=== PATIENT | female | born 1950 | race Caucasian/White ===

== ENCOUNTER 2017-01-24 10:37 | Inpatient (IN) | payer MEDICARE, OTHER ==
[2017-01-24] MEDS ORDERED: TYLENOL PO ONE (11:28)
--- NOTE | 2017-01-24 12:19 | Cat Scan Report ---
CT scan of head without IV contrast: History: Fall. Findings: Ventricles are normal in size and midline in location. No evidence of acute ischemia, hemorrhage or mass. No extra axial fluid collection. Normal brainstem and cerebellum. Normal mastoid air cells. Small polyp left maxillary sinus. Mucosal edema ethmoid sinuses. Impression: No acute intracranial abnormality. Sinus disease.
[2017-01-24 12:20] LABS: Basophils % (Auto) 1.3 % (0.0-1.8); Eosinophils % (Auto) 9.9 % (0.0-4.3); Hemoglobin 14.1 gm/dl (10.1-14.3); Mean Corpuscular HGB Conc 34 % (30-34); Mean Corpuscular Hemoglobin 29 pg (28-32); Mean Corpuscular Volume 88 fl (79-97); Platelet Count 434 K/mm3 (140-440); Red Blood Count 4.79 M/mm3 (3.65-5.03); Red Cell Distribution Width 12.5 % (13.2-15.2); White Blood Count 8.3 K/mm3 (4.5-11.0)
[2017-01-24 13:03] LABS: Alanine Aminotransferase 14 units/L (7-56); Albumin 4.7 g/dL (3.9-5); Albumin/Globulin Ratio 1.6 %; Alkaline Phosphatase 184 units/L (35-129); Anion Gap 29 mmol/L; Blood Urea Nitrogen 10 mg/dL (7-17); Calcium 10.1 mg/dL (8.4-10.2); Carbon Dioxide 18 mmol/L (22-30); Chloride 77.6 mmol/L (98-107); Glucose 129 mg/dL (65-100); Lipase 61 units/L (13-60); Potassium 3.4 mmol/L (3.6-5.0); Sodium 121 mmol/L (137-145); Total Protein 7.7 g/dL (6.3-8.2)
[2017-01-24] MEDS ORDERED: NACL 0.9% 1000 ML 1,000 ML ONE (13:14)
[2017-01-24] MEDS ORDERED: ZOFRAN ONE (13:14)
[2017-01-24] MEDS ORDERED: NACL 0.9% 1000 ML 1,000 ML IV ONE (13:34)
[2017-01-24] MEDS ORDERED: ZOFRAN IV ONE (13:40)
--- NOTE | 2017-01-24 14:03 | Admit Criteria Form ---
Admission Criteria Documentation: GENERAL ADMISSION CRITERIA (Place 'X' for any and all applicable criteria): Admission is indicated for ANY ONE of the following: [X ]I. Hemodynamic instability as indicated by ANY ONE of the following(1)(2 )(3)(4)(5): [X ]a) Vital sign abnormality not readily corrected by appropriate treatment within 12 to 24 hours indicated by ANY ONE of the following: [X]i) Hypotension [ ]ii) Symptomatic Tachycardia unresponsive to treatment (eg , analgesia, fluids, sedation as indicated) [ ]iii) Orthostatic vital sign changes unresponsive to treatment (eg, fluids) [ ]b) Vital sign abnormality that is severe indicated by ANY ONE of the following: [ ]i) Inadequate perfusion indicated by ANY ONE of the following: [ ]1) Lactic acidosis (greater than 2 mmol/L) [ ]2) New abnormal capillary refill (greater than 3 seconds) [ ]3) Other metabolic acidosis (arterial pH less than 7.35) not otherwise explained [ ]4) Reduced urine output [ ]5) Altered mental status [ ]6) Myocardial Ischemia [ ]v) Mean arterial pressure[A] less than 60 mm Hg [ ]vi) Mean arterial pressure[A] less than 70 mm Hg after 30 minutes of appropriate treatment (eg, fluid resuscitation) [ ]vii) IV inotropic or vasopressor medication required to maintain adequate blood pressure or perfusion [ ]viii) Sustained heart rate greater than 120 beats per minute in adult or child 6 years or older[B]] [ ]II. Hypertension requiring inpatient treatment as indicated by ANY ONE of the following(6)(7)(8): [ ]a) SBP greater than 220 mm Hg or DBP greater than 120 mm Hg despite treatment [ ]b) SBP greater than 140 mm Hg or DBP greater than 100 mm Hg with evidence of acute end organ damage as indicated by ANY ONE of the following: [ ]i) Encephalopathy [ ]ii) Acute renal failure as indicated by new onset of ANY ONE of the following(9)(10)(11)(12)(13): [ ]1) A 3-fold rise in serum creatinine from baseline [ ]2) Serum creatinine greater than 4 mg/dL ( 354 micromoles/L) with acute rise greater than 0.5 mg/dL (44.2 micromoles/L) [ ]3) Reduction of more than 75% in estimated glomerular filtration rate from baseline [ ]4) Estimated glomerular filtration rate less than 35 mL/min/1.73m2 (0.59 mL/sec/1.73m2) in child up to 18 years of age [ ]5) Cessation of urine output indicated by ALL of the following: [ ]A. Adequate volume status [ ]B. Inadequate urine output as indicated by ANY ONE of the following: [ ]a. Urine output less than 0.3 mL/kg/hr for 24 hours [ ]b. Anuria (urine output less than 0.1 mL/kg/hr) for 12 hours [ ]iii) Aortic dissection [ ]iv) Myocardial ischemia [ ]v) Left ventricular heart failure [ ]vi) Retinal hemorrhage [ ]vii) Other significant finding [ ]c) Hypertension in child requiring inpatient treatment as indicated by ALL of the following(14)(15)(16): [ ]i) Outpatient treatment not effective, not available, or not appropriate [ ]ii) SBP or DBP greater than 95th percentile for age [ ]iii) Evidence of acute end organ damage as indicated by ANY ONE of the following: [ ]1) Altered mental status [ ]2) Acute renal failure as indicated by new onset of ANY ONE of the following(9)(10)(11)(12)(13): [ ]A. A 3-fold rise in serum creatinine from baseline [ ]B. Serum creatinine greater than 4 mg/dL (354 micromoles/L) with acute rise greater than 0.5 mg/dL (44.2 micromoles/L) [ ]C. Reduction of more than 75% in estimated glomerular filtration rate from baseline [ ]D. Estimated glomerular filtration rate less than 35 mL/min/1.73m2 (0.59 mL/sec/1.73m2)in child up to 18 years of age [ ]E. Cessation of urine output indicated by ALL of the following: [ ]a. Adequate volume status [ ]b. Inadequate urine output as indicated by ANY ONE of the following: [ ]1) Urine output less than 0.3 mL/kg/hr for 24 hours [ ]2) Anuria (urine output less than 0.1 mL/kg/hr) for 12 hours [ ]3) Severe headache [ ]4) Visual disturbance [ ]5) Retinal hemorrhage [ ]6) Other significant finding [ ]III. Acute cardiac or peripheral ischemia as indicated by ANY ONE of the following: [ ]a) Acute coronary syndrome(17)(18) [ ]b) Acute peripheral ischemia (eg, pulseless, cool, mottled, or cyanotic extremity)(19) [ ]IV. Cardiac arrhythmias or findings of immediate concern indicated by ANY ONE of the following(20)(21): [ ]a) Heart rhythms that are inherently dangerous or unstable indicated by ANY ONE of the following(22)(23)(24): [ ]i) Resuscitated ventricular fibrillation or cardiac arrest [ ]ii) Ventricular escape rhythm [ ]iii) Sustained ventricular tachycardia (30 seconds or more of ventricular rhythm at greater than 100 beats per minute) [ ]iv) Nonsustained ventricular tachycardia and ANY ONE of the following: [ ]1) Suspected cardiac ischemia as cause or consequence of ventricular tachycardia [ ]2) In setting of acute myocarditis [ ]b) Unstable cardiac conduction defects indicated by ANY ONE of the following(24)(25)(26): [ ]i) Type II second-degree atrioventricular block [ ]ii) Third-degree atrioventricular block [ ]iii) New-onset left bundle branch block with suspected myocardial ischemia [ ]c) Any heart rhythm and ANY ONE of the following(22)(23)(27)(28)( 29): [ ] i) Continuous long-term ECG monitoring needed (eg, initiation of drug requiring monitoring for more than 24 hours) [ ] ii) Patient has automatic implanted cardioverter defibrillator that is repeatedly firing, malfunctioning, or in need of immediate adjustment of settings beyond the scope of ambulatory or observation care. [ ]d) Heart rhythms of concern due to ANY ONE of the following: [ ]i) Hypotension [ ]ii) Respiratory distress [ ]iii) Association with other significant symptoms (eg, bradycardia with syncope or ongoing dizziness, supraventricular tachycardia with chest pain) (27)(28) (30) [ ] V. Severe heart failure as indicated by ANY ONE of the following ( 31)(32): [ ]a) Respiratory distress [ ]b) Hypotension [ ]c) Anasarca (refractory to outpatient therapy) [ ]d) Cardiac arrhythmias of immediate concern [ ]e) Myocardial ischemia [ ]. Respiratory abnormalities, including ANY ONE of the following(33)(34) (35)(36): [ ]a) Respiratory rate greater than 30 breaths per minute unresponsive to treatment [A] [ ]b) New saturation of arterial oxygen less than 90% [ ]c) New partial pressure of carbon dioxide greater than 44 mm Hg ( 5.9 kPa) [ ]d) Supplemental oxygen or respiratory treatments needed that are new or not performable at other levels of care [ ]e) New-onset cyanosis [ ]f) Inability to protect airway [ ]g) Chronic lung disease with severe deterioration (not responsive to emergency and observation care treatment as appropriate) as indicated by ANY ONE of the following(34)(36 ): [ ]i) SaO2 5% below baseline in patient with chronic hypoxemia [ ]ii) New requirement for supplemental oxygen to keep SaO2 at baseline or acceptable level [ ]iii) Required supplemental oxygen performable only in acute inpatient setting [ ]iv) Severe airflow or ventilation abnormalities [ ]v) Previously mobile patient unable to walk between rooms [ ]vi Inability to eat or sleep due to dyspnea [ ]vii) Rapid rate of exacerbation onset [ ]viii) Altered mental status ]VII. Severe airflow or ventilation abnormalities (not responsive to emergency and observation care treatment as appropriate) as indicated by ANY ONE of the following(33)(34)(35)(37): [ ]a) PCO2 greater than 42 mm Hg (5.6 kPa) and pH less than 7.35 (new ) [ ]b) Documented PCO2 increased more than 5 mm Hg (0.7 kPa) from disease baseline [ ]c) Airflow measurements [B] less than 60% of previous best or predicted (eg, peak expiratory flow rate less than 300 L/minute) despite intensive emergent treatment [C] [ ]d) Required respiratory treatments that are performable only in acute inpatient setting [ ]VIII. Impending or actual respiratory arrest ( Also use Respiratory Failure GRG for severe respiratory disease and long-term mechanical ventilation patients) [ ]IX. Neurologic abnormalities, including ANY ONE of the following: [ ]a) New findings that suggest ANY ONE of the following: [ ]i) INSTALLMENT AGENT infection(38) [ ]ii) Cerebral bleeding, ischemia, or vasospasm(39)(40) [ ]iii) Increased intracranial pressure, hydrocephalus, or cerebral edema(41)(42)(43) [ ]iv) Spinal cord injury(44) [ ]b) Uncontrolled seizures(45) [ ]c) New-onset coma (eg, Walker coma scale score less than 9) or unexplained abnormal mental status (eg, [place] coma scale score less than 14) [D](41)(46)(47) [ ]X. New-onset severe neurologic findings requiring inpatient care; examples include(42)(48)(49): [ ]a) Papilledema [ ]b) Cerebral edema [ ]c) Mass effect on CT scan [ ]XI. Suspected acute intra-abdominal process with peritoneal signs, abdominal mass, or similar findings (50)(51)(52) [ ]XII. Severe physiologic disorder remaining after emergency or observation level care (as appropriate) as indicated by ANY ONE of the following (53): [ ]a) Significant dehydration [ ]b) Diabetic ketoacidosis [ ]c) Hyperglycemic hyperosmolar state (eg, osmolality greater than 320 mOsm/kg (mmol/kg) [ ]d) Hypoglycemia [ ]e) Other (new) acid-base disorder with pH less than 7.35 or greater than 7.5(54) [ ]f) Thyroid storm (55) [ ]g) Myxedema coma (55) [ ]XIII. Abdominal abnormalities with ANY ONE of the following(56)(57): [ ]a) Absent bowel sounds with complete ileus [ ]b) Signs of intestinal obstruction or peritonitis [E] [ ]c) Nausea and vomiting that cannot be controlled with outpatient or observation care [ ]XIV. Acute renal failure as indicated by new onset of ANY ONE of the following(9)(10)(11)(12)(13): [ ]a) A 3-fold rise in serum creatinine from baseline [ ]b) Serum creatinine greater than 4 mg/dL (354 micromoles/L) with acute rise greater than 0.5 mg/dL (44.2 micromoles/L) [ ]c) Reduction of more than 75% in estimated glomerular filtration rate from baseline [ ]d) Estimated glomerular filtration rate less than 35 mL/min/ 1.73m2 (0.59 mL/sec/1.73m2) in child up to 18 years of age [ ]e) Cessation of urine output indicated by ALL of the following: [ ]i) Adequate volume status [ ]ii) Inadequate urine output as indicated by ANY ONE of the following: [ ]1) Urine output less than 0.3 mL/kg/hr for 24 hours [ ]2) Anuria (urine output less than 0.1 mL/kg/hr) for 12 hours [ ]XV. Significant uremic complications as indicated by ANY ONE of the following(58)(59)(60): [ ]a) Outpatient therapy is ineffective or not feasible for ANY ONE of the following: [ ]i) Severe heart failure [ ]ii) Severehypertension [ ]iii) Pleural effusion [ ]iv) Pericarditis or pericardial effusion [ ]b) Cardiac arrhythmias of immediate concern [ ]c) Intractable nausea or vomiting [ ]d) Recurrent seizures [ ]e) Encephalopathy [ ]f) Bleeding abnormalities (eg, platelet dysfunction) with active (eg, gastrointestinal) bleeding [ ]g) Dialysis indicated before long-term access or ambulatory arrangements can be made [ ]h) Significant metabolic or electrolyte abnormalities (eg, severe acidosis or hyperkalemia) [ ]XVI. High fever or other high-risk infection situation as indicated by ANY ONE of the following(61)(62)(63)(64): [ ]a) Outpatient and observation care antimicrobial treatment unavailable, not effective, or not appropriate [ ]b) Documented bacteremia [ ]c) Temperature greater than 40.5 degrees C (104.9 degrees F) ( oral) [ ]d) Temperature greater than 39.5 degrees C (103.1 degrees F) ( oral) or less than 36 degrees C (96.8 degrees F) (rectal) that does not respond to e treatment and observation care [ ] XVII. Temperature less than 95 degrees F (35 degrees C)(rectal)(65) [ ] XVIII. Severe nutritional abnormalities as indicated by ALL of the following (66)(67): [ ]a) Inability to tolerate or establish sufficient oral or other enteral nutrition in outpatient setting [ ]b) Parenteral nutrition regimen need that must be implemented on inpatient basis [X ] XIX. Severe electrolyte abnormalities indicated by ALL of the following(68 )(69)(70): [ X]a) Electrolytes and associated findings are not as expected for patient baseline or acceptable treatment effects. [X ]b) Severe abnormalities indicated by ANY ONE of the following: [X ]i) Sodium less than 130 mEq/L (mmol/L) (new) [ ]ii)Sodium less than 135 mEq/L (mmol/L) with ANY ONE of the following: [ ]1) Uncorrectable (to near normal or chronic baseline) after trial of outpatient and emergency treatment [ ]2) Altered mental status [ ]3) Seizures [ ]4) Severe medical etiology requiring inpatient management (eg, heart failure, hypovolemia) [ ]iii) Sodium greater than 155 mEq/L (mmol/L) [ ]iv) Sodium greater than 150 mEq/L (mmol/L) with ANY ONE of the following: [ ]1) Uncorrectable (to near normal or chronic baseline) with outpatient and emergency treatment [ ]2) Altered mental status [ ]3) Seizures [ ]4) Severe medical etiology (eg, hypovolemia, diabetes insipidus) [ ]v) Potassium less than 2.5 mEq/L (mmol/L) despite outpatient and emergency treatment [ ]vi) Potassium less than 3 mEq/L (mmol/L) with ANY ONE of the following: [ ]1) Weakness [ ]2) Cardiac abnormality (eg, arrhythmia, conduction disturbance) [ ]3) Cardiac ischemia [ ]4) Ileus [ ]5) Ongoing medical cause requiring inpatient management (eg, acute renal wasting or SIADH) [ ]6) Other severe symptoms [ ]vii) Potassium greater than 6.5 mEq/L (mmol/L) [ ]viii) Potassium greater than 5 mEq/L (mmol/L) with ANY ONE of the following: [ ]1) Uncorrectable (to near normal or chronic baseline) with outpatient and emergency treatment [ ]2) Severe ECG findings [F] [ ]3) Acute worsening of renal failure (creatinine greater than 2.5 mg/dL (221 micromoles/L) or significant elevation for age and size) [ ]4) Severe weakness [ ]5) Severe medical etiology (eg, hemolysis, infection, drug overdose) [ ]ix) Calcium less than 7 mg/dL (1.75 mmol/L) despite outpatient and emergency treatment (72) [ ]x) Calcium less than 8 mg/dL (2 mmol/L) with significant symptoms or findings; examples include(72): [ ]1) Altered mental status [ ]2) Muscle spasms [ ]3) Seizures [ ]4) Breathing difficulty [ ]5) Cardiac abnormality (eg, arrhythmia or conduction disturbance) [ ]xi) Calcium greater than 14 mg/dL (3.5 mmol/L)(72) [ ]xii) Calcium greater than 12 mg/dL (3 mmol/L) with ANY ONE of the following(72): [ ]1) Uncorrectable (to near normal or chronic baseline) with outpatient and emergency treatment [ ]2) Significant dehydration or hypovolemia as indicated by ALL of the following(70)(73)(74): [ ]A. Not resolved with initial treatments [ ]B. Clinically significant dehydration as indicated by ANY ONE of the following: [ ]a. Vomiting refractory to outpatient treatment (ie, precluding oral rehydration) [ ]b. Inability to drink [ ]c. Hypernatremia or other electrolyte abnormality unable to be corrected with outpatient and emergency treatment [ ]d. Failure to remain hydrated with outpatient therapy [ ]e. Reduced urine output [ ]f. Hypotension [ ]g. Serious cause for dehydration requiring acute hospitalization (eg, bowel obstruction, increased intracranial pressure, infectious cause) [ ]h. Child with ANY ONE of the following(75): [ ]1) Severe abdominal tenderness [ ]2) Adequate care not available at home [ ]3) Severe dehydration ( greater than 9% loss of body weight) [ ]4) Significant symptoms or findings; examples include: [ ]A. Altered mental status [ ]B. Cardiac abnormality (eg, arrhythmia, conduction disturbance) [ ]C. Malignant etiology requiring inpatient treatment [ ]xiii) Phosphorus less than 1 mg/dL (0.32 mmol/L) [ ]xiv) Phosphorus less than 1.5 mg/dL (0.48 mmol/L) with ANY ONE of the following: [ ]1) Patient unresponsive to outpatient and emergency treatment [ ]2) Significant symptoms or findings; examples include: [ ]A. Weakness [ ]B. Altered mental status [ ]C. Breathing difficulty [ ]D. Seizures [ ]E. Rhabdomyolysis [ ]xv) Phosphorus greater than 10 mg/dL (3.2 mmol/L) [ ]xvi) Phosphorus greater than 4.5 mg/dL (1.45 mmol/L) (new) with ANY ONE of the following: [ ]1) Severe medical etiology (eg, crush injury, acute renal failure) [ ]2) Associated hypocalcemia with significant findings; examples include: [ ]A. Neurologic symptoms [ ]B. Altered mental status [ ]C. Muscle spasms [ ]D. Seizures [ ]E. Breathing difficulty [ ]F. Cardiac abnormality (eg, arrhythmia, conduction disturbance) [ ]xvii) Magnesium less than 1 mg/dL (0.41 mmol/L) [ ]xviii) Magnesium less than 1.5 mg/dL (0.62 mmol/L) with ANY ONE of the following: [ ]1) Patient unresponsive to outpatient and emergency treatment [ ]2) Associated hypocalcemia with significant findings; examples include: [ ]A. Altered mental status [ ]B. Muscle spasms [ ]C. Seizures [ ]D. Breathing difficulty [ ]E. Cardiac abnormality (eg, arrhythmia , conduction disturbance) [ ]3) Associated hypokalemia (potassium less than 3 mEq/L (mmol/L)) with risk of arrhythmia [ ]xix) Magnesium greater than 4 mEq/L (2 mmol/L) [ ]xx) Magnesium greater than 2.5 mEq/L (1.25 mmol/L) with significant symptoms or findings; examples include: [ ]1) Weakness [ ]2) Altered mental status [ ]3) Cardiac abnormality (eg, arrhythmia, conduction disturbance) [ ]4) Breathing difficulty [ ]5) Severe medical etiology (eg, renal failure, hypovolemia) [ ]xxi) Uric acid greater than 20 mg/dL (1190 micromoles/L)(76) [ ]xxii) Uric acid greater than 8 mg/dL (476 micromoles/L) with significant symptoms or findings of tumor lysis syndrome; examples include(76): [ ]1) Creatinine greater than 1.5 times upper limit of normal [ ]2) Cardiac abnormality (eg, arrhythmia, conduction disturbance) [ ]3) Seizure [ ]XX. Acute blood loss causing significant abnormality as indicated by ANY ONE of the following(77)(78): [ ]a) Hemoglobin less than 10 g/dL (100 g/L) (not baseline) [ ]b) Hematocrit less than 30% (0.30) (not baseline) [ ]c) Repeat hematocrit decreased more than 2% (0.02) [ ]d) Uncontrolled bleeding [ ]XXI. Severe anemia indicated by ANY ONE of the following(78)(79): [ ]a) Altered mental status [ ]b) Chest pain [ ]c) Exertional dyspnea [ ]d) Syncope [ ]e) Other findings suggesting inadequate perfusion [ ]f) Treatment with transfusion or volume replacement is ineffective at resolving ANY ONE of the following [G]: [ ]i) Tachycardia for age [ ]ii) Orthostatic vital sign changes as indicated by ANY ONE of the following(80): [ ]1) Fall in SBP of 20 mm Hg or more 1 to 3 minutes after patient sits or stands from recumbent position [ ]2) Fall in DBP of 10 mm Hg or more 1 to 3 minutes after patient sits or stands from recumbent position [ ]XXII. High-risk low platelet count as indicated by ANY ONE of the following( 81)(82): [ ]a) Severe or life-threatening bleeding (eg, intracranial, major gastrointestinal, or extensive mucosal bleeding), with any reduced platelet count [ ]b) Platelet count less than 20,000/mm3 (20 x109/L) with any active bleeding [ ]c) Platelet count less than 10,000/mm3 (10 x109/L) with minor purpura or petechiae [ ]d) Platelet count less than 5000/mm3 (5 x109/L) [ ]e) Low platelet count with hemolytic anemia [ ]XXIII. Disseminated intravascular coagulation(77)(83) [ ]XXIV. Severe adverse drug or systemic toxin reaction requiring inpatient treatment; examples include(84)(85): [ ]a) Serotonin syndrome(86) [ ]b) Neuroleptic malignant syndrome(86) [ ]c) Cholinergic syndrome with severe symptoms (eg, bronchorrhea, weakness, mental status changes, seizures) [ ]d) Sympathetic syndrome with severe symptoms (eg, seizures, mental status changes, cardiac dysrhythmias) [ ]e) Anticholinergic syndrome [ ]XXV. Severe pain requiring acute inpatient management as indicated by ALL of the following (87)(88)(89): [ ]a) Continuous or frequent (eg, every 2 to 4 hours) parenteral analgesics required [H] [ ]b) Rapid improvement expected from treatment or acute intervention (eg, surgery, anesthesia procedure) [ ]XXVI.Severe behavioral health issues judged unmanageable at a lower level of care (eg, residential) in a patient who is ANY ONE of the following(91) [ ]a) Acutely suicidal [ ]b) A danger to self (eg, self-mutilating or suicidal behavior) [ ]c) A danger to others (eg, assaultive or homicidal behavior) [ ]d) Incapacitated because of grave disability (eg, inability to provide for self at lower level of care) (92) [ ]XXVII. Inpatient monitoring needed; examples include(1)(3)(87)(93)(94)(95)(96 ): [ ]a) Vital signs, neurologic signs, or vascular checks more frequently than every 4 hours [ ]b) Cardiac or respiratory monitoring beyond the scope (eg, over 24 hours) of observation care [ ]c) Pulmonary artery catheter monitoring [ ]d) Suspected compartment syndrome(97) (98) [ ]e) Cerebral bleeding, hydrocephalus, or vasospasm monitoring [ ]f) Increased intracranial pressure or cerebral edema monitoring [ ]g) monitoring [ ]XXVIII. Treatment requiring inpatient care; examples include: [ ]a) IV fluid to replace significant ongoing losses (greater than 3 L/m2 per day)(53) [ ]b) High concentration oxygen (greater than 40%)(33)(99)(100) [ ]c) Frequent respiratory therapy (more frequently than every 4 hours) to maintain airflow rates greater than 60% of baseline(33)(99)(100) [ ]d) Epidural analgesia(87) [ ]e) IV anticoagulation, vasoactive, or antiarrhythmic medication(19 )(23) [ ]f) Acute thrombolytics (generally require 24 hours of observation )(101)(102) [ ]XXIX. Emergency procedures needed; examples include: [ ]a) Emergency inpatient surgery [ ]b) Temporary pacemaker placement(103) [ ]c) Chest tube placement with active evacuation (eg, suction, drainage)(104) [ ]d) Emergent cardioversion(105) [ ]e) Emergent cardiac or vascular procedures (eg, cardiac catheterization, angioplasty) (17)(18) [ ]f) Emergent dialysis access placement and institution(10)(106) [ ]g) Emergent pericardiocentesis(107) [ ]h) Emergent plasmapheresis or leukapheresis(83) [ ]i) Emergent tracheostomy The original [employer] content created by [employer] has been revised. The portions of the content which have been revised are identified through the use of italic text or in bold, and [email or web address] has neither reviewed nor approved the modified material. All other unmodified content is copyright [employer]. Please see references footnoted in the original [employer] edition 2016 Admission Criteria Met: Yes
[2017-01-24 14:09] LABS: INR 1.07 (0.87-1.13)
--- NOTE | 2017-01-24 14:12 | XRay Report ---
Single view chest: History: Hypotension. Findings: Normal cardiomediastinal silhouette. Trachea is midline. No consolidation, pneumothorax or pleural effusion. Impression: No acute cardiopulmonary findings.
[2017-01-24] MEDS ORDERED: LEVAQUIN 750MG/150ML 750 MG/150 ML BAG IV ONE ×2 (14:38→15:54)
--- NOTE | 2017-01-24 14:40 | Emergency Department Report ---
ED General Adult HPI - General Chief complaint: Fall Stated complaint: SHOULDER PAIN Time Seen by Provider: 01/24/17 13:25 Source: patient, EMS Mode of arrival: Ambulatory Limitations: Physical Limitation - History of Present Illness Initial comments: The patient complained of nausea vomiting and weakness which has been going on for several days. She is unable to tolerate by mouth. She states that she fell while getting up from the toilet and had a brief loss of consciousness. She denies injury. Apparently she mentioned bilateral shoulder pain to the nurse but was not complaining of that knee. She denies any head injury. She denies signs of GI bleeding difficulty in breathing cough or leg pain. She denies any headache or focal neurological change. Quality: other (complain of shoulder pain to triage but not to me) Consistency: now resolved Improves with: none Worsens with: none Associated Symptoms: denies other symptoms - Related Data Home Medications Medication Instructions Recorded Confirmed Last Taken Atenolol [Tenormin] 100 mg PO DAILY 01/24/17 01/24/17 1 Day Ago Lisinopril [Zestril] 20 mg PO QDAY 01/24/17 01/24/17 1 Day Ago amLODIPine [Norvasc] 5 mg PO DAILY 01/24/17 01/24/17 1 Day Ago traMADol [Ultram] 50 mg PO Q6HR PRN 01/24/17 01/24/17 1 Day Ago Allergies Allergy/AdvReac Type Severity Reaction Status Date / Time Penicillins Allergy Rash Verified 01/24/17 11:13 Sulfa (Sulfonamide Allergy Rash Verified 01/24/17 11:13 Antibiotics) ED Review of Systems ROS: Stated complaint: SHOULDER PAIN Other details as noted in HPI Constitutional: denies: chills, fever Eyes: denies: eye pain, eye discharge, vision change ENT: denies: ear pain, throat pain Respiratory: denies: cough, shortness of breath, wheezing Cardiovascular: denies: chest pain, palpitations Endocrine: no symptoms reported Gastrointestinal: denies: abdominal pain, nausea, diarrhea Genitourinary: denies: urgency, dysuria, discharge Musculoskeletal: as per HPI. denies: back pain, joint swelling, arthralgia Skin: denies: rash, lesions Neurological: denies: headache, weakness, paresthesias Psychiatric: denies: anxiety, depression Hematological/Lymphatic: denies: easy bleeding, easy bruising ED Past Medical Hx - Past Medical History Hx Hypertension: Yes - Social History Smoking Status: Never Smoker Substance Use Type: None - Medications Home Medications: Home Medications Medication Instructions Recorded Confirmed Last Taken Type Atenolol [Tenormin] 100 mg PO DAILY 01/24/17 01/24/17 1 Day Ago History Lisinopril [Zestril] 20 mg PO QDAY 01/24/17 01/24/17 1 Day Ago History amLODIPine [Norvasc] 5 mg PO DAILY 01/24/17 01/24/17 1 Day Ago History traMADol [Ultram] 50 mg PO Q6HR PRN 01/24/17 01/24/17 1 Day Ago History ED Physical Exam - General Limitations: Physical Limitation General appearance: alert, in no apparent distress, other (somewhat volume depleted) - Head Head exam: Present: atraumatic, normocephalic - Eye Eye exam: Present: normal appearance - ENT ENT exam: Present: mucous membranes moist - Neck Neck exam: Present: normal inspection - Respiratory Respiratory exam: Present: normal lung sounds bilaterally. Absent: respiratory distress - Cardiovascular Cardiovascular Exam: Present: regular rate, normal rhythm. Absent: systolic murmur, diastolic murmur, rubs, gallop - GI/Abdominal GI/Abdominal exam: Present: soft, normal bowel sounds. Absent: distended, tenderness, guarding, rebound, rigid - Extremities Exam Extremities exam: Present: normal inspection - Back Exam Back exam: Present: normal inspection - Neurological Exam Neurological exam: Present: alert, oriented X3, CN II-XII intact. Absent: motor sensory deficit - Psychiatric Psychiatric exam: Present: normal affect, normal mood - Skin Skin exam: Present: warm, dry, intact, normal color. Absent: rash ED Course Vital Signs 01/24/17 01/24/17 01/24/17 10:55 10:56 10:58 Temperature Pulse Rate 59 L 60 57 L Respiratory 13 11 L 13 Rate Blood Pressure 84/57 Blood Pressure [Left] O2 Sat by Pulse 97 Oximetry 01/24/17 01/24/17 01/24/17 11:00 11:02 11:04 Temperature 98.2 F Pulse Rate 58 L 59 L 55 L Respiratory 10 L 13 15 Rate Blood Pressure 86/58 86/58 86/58 Blood Pressure 84/57 [Left] O2 Sat by Pulse 97 98 98 Oximetry 01/24/17 01/24/17 01/24/17 11:05 11:06 11:08 Temperature Pulse Rate 56 L 54 L Respiratory 22 13 13 Rate Blood Pressure 86/58 86/58 Blood Pressure [Left] O2 Sat by Pulse 97 97 Oximetry - Reevaluation(s) Reevaluation #1: Is awake alert and oriented 3. Her mental status was good. She was treated with normal saline for her hyponatremia. She has somewhat volume depleted. Pressure did improve. She was admitted by Dr. Griffiths hospitalist service for further care and evaluation. 01/24/17 17:40 ED Medical Decision Making - Lab Data Result diagrams: 01/24/17 11:40 01/24/17 18:10 Laboratory Results - last 24 hr 01/24/17 01/24/17 01/24/17 11:28 11:40 11:40 WBC 8.3 RBC 4.79 Hgb 14.1 Hct 42.0 MCV 88 MCH 29 MCHC 34 RDW 12.5 L Plt Count 434 Lymph % (Auto) 24.3 [place] % (Auto) 9.0 H Eos % (Auto) 9.9 H Baso % (Auto) 1.3 Lymph # 2.0 [place] # 0.7 Eos # 0.8 H Baso # 0.1 Seg Neutrophils % 55.5 Seg Neutrophils # 4.6 PT INR APTT Sodium 121 L Potassium 3.4 L Chloride 77.6 L Carbon Dioxide 18 L Anion Gap 29 BUN 10 Creatinine 1.0 Estimated GFR 55 BUN/Creatinine Ratio 10.00 Glucose 129 H Lactic Acid Calcium 10.1 Magnesium Total Bilirubin 0.40 AST 24 ALT 14 Alkaline Phosphatase 184 H Ammonia Troponin T < 0.010 NT-Pro-B Natriuret Pep Total Protein 7.7 Albumin 4.7 Albumin/Globulin Ratio 1.6 Lipase 61 H TSH Free T4 Urine Color Yellow Urine Turbidity Clear Urine pH 7.0 Ur Specific [place] 1.010 Urine Protein <15 mg/dl Urine Glucose (UA) Neg Urine Ketones Neg Urine Blood Neg Urine Nitrite Neg Urine Bilirubin Neg Urine Urobilinogen < 2.0 Ur Leukocyte Esterase Neg Urine WBC (Auto) < 1.0 Urine RBC (Auto) 3.0 U Epithel Cells (Auto) < 1.0 01/24/17 01/24/17 01/24/17 11:40 11:40 Unknown WBC RBC Hgb Hct MCV MCH MCHC RDW Plt Count Lymph % (Auto) [place] % (Auto) Eos % (Auto) Baso % (Auto) Lymph # [place] # Eos # Baso # Seg Neutrophils % Seg Neutrophils # PT 13.8 INR 1.07 APTT 20.0 L Sodium Potassium Chloride Carbon Dioxide Anion Gap BUN Creatinine Estimated GFR BUN/Creatinine Ratio Glucose Lactic Acid Calcium Magnesium 1.90 Total Bilirubin AST ALT Alkaline Phosphatase Ammonia Troponin T NT-Pro-B Natriuret Pep 28.24 Total Protein Albumin Albumin/Globulin Ratio Lipase TSH 1.130 Free T4 1.37 Urine Color Urine Turbidity Urine pH Ur Specific [place] Urine Protein Urine Glucose (UA) Urine Ketones Urine Blood Urine Nitrite Urine Bilirubin Urine Urobilinogen Ur Leukocyte Esterase Urine WBC (Auto) Urine RBC (Auto) U Epithel Cells (Auto) 01/24/17 01/24/17 Unknown Unknown WBC RBC Hgb Hct MCV MCH MCHC RDW Plt Count Lymph % (Auto) [place] % (Auto) Eos % (Auto) Baso % (Auto) Lymph # [place] # Eos # Baso # Seg Neutrophils % Seg Neutrophils # PT INR APTT Sodium Potassium Chloride Carbon Dioxide Anion Gap BUN Creatinine Estimated GFR BUN/Creatinine Ratio Glucose Lactic Acid 2.40 H* Calcium Magnesium Total Bilirubin AST ALT Alkaline Phosphatase Ammonia 34.0 Troponin T NT-Pro-B Natriuret Pep Total Protein Albumin Albumin/Globulin Ratio Lipase TSH Free T4 Urine Color Urine Turbidity Urine pH Ur Specific [place] Urine Protein Urine Glucose (UA) Urine Ketones Urine Blood Urine Nitrite Urine Bilirubin Urine Urobilinogen Ur Leukocyte Esterase Urine WBC (Auto) Urine RBC (Auto) U Epithel Cells (Auto) - EKG Data -: EKG Interpreted by Me EKG shows normal: sinus rhythm, axis, intervals, QRS complexes, ST-T waves Rate: normal - EKG Data Interpretation: normal EKG Critical care attestation.: If time is entered above; I have spent that time in minutes in the direct care of this critically ill patient, excluding procedure time. ED Disposition Clinical Impression: Hyponatremia, Hypochloremia, Hypokalemia, Vomiting Episode of syncope Qualifiers: Syncope type: unspecified Qualified Code(s): R55 - Syncope and collapse Hypotension Qualifiers: Hypotension type: unspecified hypotension type Qualified Code(s): I95.9 - Hypotension, unspecified Disposition: OP ADMIT IP TO THIS HOSP Is pt being admited?: Yes Does the pt Need Aspirin: Yes Condition: Stable Time of Disposition: 17:45
[2017-01-24 14:58] LABS: Magnesium 1.9 mg/dL (1.7-2.3)
[2017-01-24 15:28] LABS: Bilirubin,Urine NEG (Negative); Blood,Urine NEG (Negative); Ketones,Urine NEG (Negative); Leukocyte Esterase,Urine NEG (Negative); Nitrite,Urine NEG (Negative); Protein,Urine <15 mg/dL mg/dL (Negative); Urobilinogen,Urine < 2.0 mg/dL (<2.0); WBC,Urine < 1.0 /HPF (0.0-6.0)
--- NOTE | 2017-01-24 16:10 | History and Physical Report ---
History of Present Illness Date of examination: 01/24/17 Date of admission: 01/24/17 14:34 Chief complaint: CC:Passed out this AM History of present illness: [place]:66 y/o female with Hx of HTN was getting up from commode and passed out for a few seconds.Patient also has been vomiting off and on for past one month.No diarrhea.Some epigastric discomfort present.Feels very weak.No CP or SOB.No fever or chills.Unable to tolerate food.Not on any diuretics.Also bilateral shoulder pain.Takes Tramadol for the pain. Past History Past Medical History: hypertension Past Surgical History: No surgical history Social history: lives with family. denies: smoking, alcohol abuse Family history: hypertension Medications and Allergies Allergies Allergy/AdvReac Type Severity Reaction Status Date / Time Penicillins Allergy Rash Verified 01/24/17 11:13 Sulfa (Sulfonamide Allergy Rash Verified 01/24/17 11:13 Antibiotics) Home Medications Medication Instructions Recorded Confirmed Last Taken Type Atenolol [Tenormin] 100 mg PO DAILY 01/24/17 01/24/17 1 Day Ago History Lisinopril [Zestril] 20 mg PO QDAY 01/24/17 01/24/17 1 Day Ago History amLODIPine [Norvasc] 5 mg PO DAILY 01/24/17 01/24/17 1 Day Ago History traMADol [Ultram] 50 mg PO Q6HR PRN 01/24/17 01/24/17 1 Day Ago History Review of Systems All systems: negative Constitutional: no weight loss, no weight gain, no fever, no chills, no sweats, no night sweats Ears, nose, mouth and throat: no dysphagia, no hoarseness, no sore throat, no swelling in mouth, no swelling in throat, no odynophagia Breasts: deferred Cardiovascular: syncope, lightheadedness, no chest pain, no orthopnea, no palpitations, no rapid/irregular heart beat, no edema, no shortness of breath, no dyspnea on exertion, no paroxysmal nocturnal dyspnea, no claudication Respiratory: no cough, no cough with sputum, no excessive sputum, no hemoptysis , no shortness of breath, no dyspnea on exertion Gastrointestinal: vomiting, no abdominal pain, no nausea, no diarrhea, no constipation, no change in bowel habits, no hematemesis, no coffee ground emesis Genitourinary Female: no pelvic pain, no flank pain, no menorrhagia, no dysuria , no urinary frequency, no urgency, no stress incontinence, no post void dribbling, no incomplete emptying, no urge incontinence, no mixed incontinence, no difficulty voiding, no hematuria Menstruation: ammenorrhea Rectal: no pain Musculoskeletal: no neck stiffness, no neck pain, no shooting arm pain, no arm numbness/tingling, no low back pain, no shooting leg pain, no leg numbness/ tingling, no redness of joints Integumentary: no rash, no pruritis, no redness, no sores, no wounds, no jaundice, no boils, no blisters Neurological: syncope, tremors, no head injury, no transient paralysis, no paralysis, no weakness, no parathesias, no numbness, no tingling, no seizures, no ataxia, no lack of coordination Psychiatric: no anxiety, no memory loss, no change in sleep habits, no sleep disturbances, no insomnia, no hypersomnia, no change in appetite, no change in libido Endocrine: no cold intolerance, no heat intolerance, no polyphagia, no excessive thirst, no polydipsia, no polyuria, no nocturia, no excessive sweating , no flushing, no weight change Hematologic/Lymphatic: no easy bruising, no easy bleeding Allergic/Immunologic: no urticaria, no allergic rhinitis, no wheezing Exam - Constitutional Vitals: Temp Pulse Resp BP Pulse Ox 98.2 F 54 L 13 86/58 97 01/24/17 11:04 01/24/17 11:08 01/24/17 11:08 01/24/17 11:08 01/24/17 11:08 General appearance: Present: no acute distress, well-nourished - EENT Eyes: Present: PERRL ENT: hearing intact, clear oral mucosa - Neck Neck: Present: supple, normal ROM - Respiratory Respiratory effort: normal Respiratory: bilateral: CTA - Cardiovascular Heart rate: 90 Rhythm: regular Heart Sounds: Present: S1 & S2. Absent: rub, click - Extremities Extremities: pulses symmetrical, No edema Peripheral Pulses: within normal limits - Abdominal General gastrointestinal: Present: soft, non-tender, non-distended, normal bowel sounds Female genitourinary: Present: normal - Rectal Rectal Exam: deferred - Integumentary Integumentary: Present: clear, warm, dry - Musculoskeletal Musculoskeletal: gait normal, strength equal bilaterally - Psychiatric Psychiatric: appropriate mood/affect, intact judgment & insight - Neurologic Neurologic: CNII-XII intact, moves all extremities - Allied Health Allied health notes reviewed: nursing, case management Results - Labs CBC & Chem 7: 01/24/17 11:40 01/24/17 18:10 Labs: Laboratory Last Values WBC 8.3 K/mm3 (4.5-11.0) 01/24/17 11:40 RBC 4.79 M/mm3 (3.65-5.03) 01/24/17 11:40 Hgb 14.1 gm/dl (10.1-14.3) 01/24/17 11:40 Hct 42.0 % (30.3-42.9) 01/24/17 11:40 MCV 88 fl (79-97) 01/24/17 11:40 MCH 29 pg (28-32) 01/24/17 11:40 MCHC 34 % (30-34) 01/24/17 11:40 RDW 12.5 % (13.2-15.2) L 01/24/17 11:40 Plt Count 434 K/mm3 (140-440) 01/24/17 11:40 Lymph % (Auto) 24.3 % (13.4-35.0) 01/24/17 11:40 [place] % (Auto) 9.0 % (0.0-7.3) H 01/24/17 11:40 Eos % (Auto) 9.9 % (0.0-4.3) H 01/24/17 11:40 Baso % (Auto) 1.3 % (0.0-1.8) 01/24/17 11:40 Lymph # 2.0 K/mm3 (1.2-5.4) 01/24/17 11:40 [place] # 0.7 K/mm3 (0.0-0.8) 01/24/17 11:40 Eos # 0.8 K/mm3 (0.0-0.4) H 01/24/17 11:40 Baso # 0.1 K/mm3 (0.0-0.1) 01/24/17 11:40 Seg Neutrophils % 55.5 % (40.0-70.0) 01/24/17 11:40 Seg Neutrophils # 4.6 K/mm3 (1.8-7.7) 01/24/17 11:40 PT 13.8 Sec. (12.2-14.9) 01/24/17 Unknown INR 1.07 (0.87-1.13) 01/24/17 Unknown APTT 20.0 Sec. (24.2-36.6) L 01/24/17 Unknown Sodium 121 mmol/L (137-145) L 01/24/17 11:40 Potassium 3.4 mmol/L (3.6-5.0) L 01/24/17 11:40 Chloride 77.6 mmol/L (98-107) L 01/24/17 11:40 Carbon Dioxide 18 mmol/L (22-30) L 01/24/17 11:40 Anion Gap 29 mmol/L 01/24/17 11:40 BUN 10 mg/dL (7-17) 01/24/17 11:40 Creatinine 1.0 mg/dL (0.7-1.2) 01/24/17 11:40 Estimated GFR 55 ml/min 01/24/17 11:40 BUN/Creatinine Ratio 10.00 % 01/24/17 11:40 Glucose 129 mg/dL (65-100) H 01/24/17 11:40 Lactic Acid 2.40 mmol/L (0.7-2.0) H* 01/24/17 Unknown Calcium 10.1 mg/dL (8.4-10.2) 01/24/17 11:40 Magnesium 1.90 mg/dL (1.7-2.3) 01/24/17 11:40 Total Bilirubin 0.40 mg/dL (0.1-1.2) 01/24/17 11:40 AST 24 units/L (5-40) 01/24/17 11:40 ALT 14 units/L (7-56) 01/24/17 11:40 Alkaline Phosphatase 184 units/L (35-129) H 01/24/17 11:40 Troponin T < 0.010 ng/mL (0.00-0.029) 01/24/17 11:40 NT-Pro-B Natriuret Pep 28.24 pg/mL (0-900) 01/24/17 11:40 Total Protein 7.7 g/dL (6.3-8.2) 01/24/17 11:40 Albumin 4.7 g/dL (3.9-5) 01/24/17 11:40 Albumin/Globulin Ratio 1.6 % 01/24/17 11:40 Lipase 61 units/L (13-60) H 01/24/17 11:40 TSH 1.130 mlU/mL (0.270-4.200) 01/24/17 11:40 Free T4 1.37 ng/dL (0.76-1.46) 01/24/17 11:40 Urine Color Yellow (Yellow) 01/24/17 11:28 Urine Turbidity Clear (Clear) 01/24/17 11:28 Urine pH 7.0 (5.0-7.0) 01/24/17 11:28 Ur Specific [place] 1.010 (1.003-1.030) 01/24/17 11:28 Urine Protein <15 mg/dl mg/dL (Negative) 01/24/17 11:28 Urine Glucose (UA) Neg mg/dL (Negative) 01/24/17 11:28 Urine Ketones Neg mg/dL (Negative) 01/24/17 11:28 Urine Blood Neg (Negative) 01/24/17 11:28 Urine Nitrite Neg (Negative) 01/24/17 11:28 Urine Bilirubin Neg (Negative) 01/24/17 11:28 Urine Urobilinogen < 2.0 mg/dL (<2.0) 01/24/17 11:28 Ur Leukocyte Esterase Neg (Negative) 01/24/17 11:28 Urine WBC (Auto) < 1.0 /HPF (0.0-6.0) 01/24/17 11:28 Urine RBC (Auto) 3.0 /HPF (0.0-6.0) 01/24/17 11:28 U Epithel Cells (Auto) < 1.0 /HPF (0-13.0) 01/24/17 11:28 Short CBC 01/24/17 Range/Units 11:40 WBC 8.3 (4.5-11.0) K/mm3 Hgb 14.1 (10.1-14.3) gm/dl Hct 42.0 (30.3-42.9) % Plt Count 434 (140-440) K/mm3 BMP 01/24/17 01/24/17 11:40 18:10 Sodium 121 L 125 L Potassium 3.4 L 3.2 L Chloride 77.6 L 86.1 L Carbon Dioxide 18 L 24 BUN 10 Creatinine 1.0 Glucose 129 H Calcium 10.1 Cardiac Enzymes 01/24/17 Range/Units 11:40 Troponin T < 0.010 (0.00-0.029) ng/mL Liver Function 01/24/17 Range/Units 11:40 Total Bilirubin 0.40 (0.1-1.2) mg/dL AST 24 (5-40) units/L ALT 14 (7-56) units/L Alkaline Phosphatase 184 H (35-129) units/L Albumin 4.7 (3.9-5) g/dL Urine 01/24/17 Range/Units 11:28 Urine Color Yellow (Yellow) Urine pH 7.0 (5.0-7.0) Ur Specific [place] 1.010 (1.003-1.030) Urine Protein <15 mg/dl (Negative) mg/dL Urine Glucose (UA) Neg (Negative) mg/dL - Imaging and Cardiology EKG: report reviewed Chest x-ray: report reviewed (NAF) CT Scan - head: report reviewed (NAF) Assessment and Plan Advance Directives: Yes (Full code) VTE prophylaxis?: Chemical Plan of care discussed with patient/family: Yes - Patient Problems (1) Hyponatremia Current Visit: Yes Status: Acute Plan to address problem: Sec to recurrent vomiting.IV NS for now.Check urine Lytes. (2) Hypokalemia Current Visit: Yes Status: Acute Plan to address problem: Supplemented (3) Syncope and collapse Current Visit: Yes Status: Acute Plan to address problem: Sec to volume depletion .IV fluids. Carotid duplex scan ordered Stress test on 01/26 when patient is more stable (4) HTN (hypertension) Current Visit: Yes Status: Chronic Qualifiers: Hypertension type: essential hypertension Qualified Code(s): I10 - Essential (primary) hypertension Plan to address problem: Patient Hypotensive now.Will hold BP meds (5) Gastritis Current Visit: Yes Status: Acute Qualifiers: Gastritis type: unspecified gastritis Chronicity: C Gastritis bleeding: G Plan to address problem: IV protonix for now.GI consult requested. (6) DVT prophylaxis Current Visit: Yes Status: Acute Plan to address problem: On Lovenox 40 mg sq qd
[2017-01-24] MEDS ORDERED: DULCOLAX PR PRN (16:13)
[2017-01-24] MEDS ORDERED: TYLENOL PO PRN (16:13)
[2017-01-24] MEDS ORDERED: ZOFRAN IV PRN (16:13)
[2017-01-24] MEDS ORDERED: MILK OF MAGNESIA PO PRN (16:13)
[2017-01-24 18:54] LABS: Chloride 86.1 mmol/L (98-107); Potassium 3.2 mmol/L (3.6-5.0)
[2017-01-24] MEDS: K-DUR PO SCH (19:52)
[2017-01-24] MEDS: NACL 0.9% 1000 ML 1,000 ML IV SCH (19:53)
[2017-01-24] MEDS: ULTRAM PO PRN (20:32)
[2017-01-25] MEDS: ULTRAM PO PRN ×3 (02:22→19:53)
[2017-01-25] MEDS: NACL 0.9% 1000 ML 1,000 ML IV SCH ×3 (06:31→23:31)
[2017-01-25 07:31] LABS: Creatine Kinase MB 5.1 ng/mL (0.0-4.0)
[2017-01-25 07:32] LABS: Creatine Kinase 469 units/L (30-135)
--- NOTE | 2017-01-25 07:58 | Progress Note ---
Assessment and Plan Assessment and plan: 66 y/o female with Hx of HTN was getting up from commode and passed out for a few seconds.Patient also has been vomiting off and on for past one month.No diarrhea.Some epigastric discomfort present.Feels very weak.No CP or SOB.No fever or chills.Unable to tolerate food.Not on any diuretics.Also bilateral shoulder pain.Takes Tramadol for the pain. Ruq abdominal Pain with possible associated Gastritis * IV protonix for now.GI consult requested. * CT abdomen and pelvis * Noted Lipase elevation likely secondary to repeated vomiting. Doubt pancreatitis Hypovolumic Hyponatremia * Adjust fluids to 125cc/hr. Repeat BMP today * Likely secondary to Intractable vomiting * Check osmolality Hypokalemia * Considering recurrent vomiting, add supplementation to IVF Syncope and collapse * Situational with possible orthostatic vs Vasovagal * Check orthostatic pressures * Agree with stress test when more stable * Check Echocardiogram HTN (hypertension) * Patient Hypotensive now.Will hold BP meds Shoulder Pain * Will hold tramdol at this time due to repeated nasuea and vomiting * warm compress * ?need for imaging * Bradycardia * Improving. continue to monitor Lactic acidosis * No fever, no evidence of infection, possibly due to dehydration, will repeat DVT prophylaxis * On Lovenox 40 mg sq qd Plan of care discussed in detail with the patient and GI History Interval history: Patient seen and examined, in no acute distress. Reports RUQ pain and has only been able to keep broth down. Hospitalist Physical - Constitutional Vitals: Temp Pulse Resp BP Pulse Ox 98.4 F 70 14 104/67 98 01/25/17 03:27 01/25/17 03:27 01/25/17 03:27 01/25/17 03:27 01/25/17 03:27 General appearance: Present: no acute distress, well-nourished - EENT Eyes: Present: PERRL, EOM intact ENT: clear oral mucosa - Neck Neck: Present: supple, normal ROM - Respiratory Respiratory: bilateral: CTA - Cardiovascular Rhythm: regular Heart Sounds: Present: S1 & S2 - Extremities Extremities: no ischemia, pulses intact, pulses symmetrical Peripheral Pulses: within normal limits - Abdominal General gastrointestinal: soft, tender (RUQ), normal bowel sounds - Psychiatric Psychiatric: appropriate mood/affect, intact judgment & insight, cooperative - Neurologic Neurologic: CNII-XII intact - Allied Health Allied health notes reviewed: nursing Results - Labs CBC & Chem 7: 01/24/17 11:40 01/25/17 08:14 Labs: Laboratory Last Values WBC 8.3 K/mm3 (4.5-11.0) 01/24/17 11:40 RBC 4.79 M/mm3 (3.65-5.03) 01/24/17 11:40 Hgb 14.1 gm/dl (10.1-14.3) 01/24/17 11:40 Hct 42.0 % (30.3-42.9) 01/24/17 11:40 MCV 88 fl (79-97) 01/24/17 11:40 MCH 29 pg (28-32) 01/24/17 11:40 MCHC 34 % (30-34) 01/24/17 11:40 RDW 12.5 % (13.2-15.2) L 01/24/17 11:40 Plt Count 434 K/mm3 (140-440) 01/24/17 11:40 Lymph % (Auto) 24.3 % (13.4-35.0) 01/24/17 11:40 [place] % (Auto) 9.0 % (0.0-7.3) H 01/24/17 11:40 Eos % (Auto) 9.9 % (0.0-4.3) H 01/24/17 11:40 Baso % (Auto) 1.3 % (0.0-1.8) 01/24/17 11:40 Lymph # 2.0 K/mm3 (1.2-5.4) 01/24/17 11:40 [place] # 0.7 K/mm3 (0.0-0.8) 01/24/17 11:40 Eos # 0.8 K/mm3 (0.0-0.4) H 01/24/17 11:40 Baso # 0.1 K/mm3 (0.0-0.1) 01/24/17 11:40 Seg Neutrophils % 55.5 % (40.0-70.0) 01/24/17 11:40 Seg Neutrophils # 4.6 K/mm3 (1.8-7.7) 01/24/17 11:40 PT 13.8 Sec. (12.2-14.9) 01/24/17 Unknown INR 1.07 (0.87-1.13) 01/24/17 Unknown APTT 20.0 Sec. (24.2-36.6) L 01/24/17 Unknown Sodium 125 mmol/L (137-145) L 01/24/17 18:10 Potassium 3.2 mmol/L (3.6-5.0) L 01/24/17 18:10 Chloride 86.1 mmol/L (98-107) L 01/24/17 18:10 Carbon Dioxide 24 mmol/L (22-30) 01/24/17 18:10 Anion Gap 18 mmol/L 01/24/17 18:10 BUN 10 mg/dL (7-17) 01/24/17 11:40 Creatinine 1.0 mg/dL (0.7-1.2) 01/24/17 11:40 Estimated GFR 55 ml/min 01/24/17 11:40 BUN/Creatinine Ratio 10.00 % 01/24/17 11:40 Glucose 129 mg/dL (65-100) H 01/24/17 11:40 Lactic Acid 2.40 mmol/L (0.7-2.0) H* 01/24/17 Unknown Calcium 10.1 mg/dL (8.4-10.2) 01/24/17 11:40 Magnesium 1.90 mg/dL (1.7-2.3) 01/24/17 11:40 Total Bilirubin 0.40 mg/dL (0.1-1.2) 01/24/17 11:40 AST 24 units/L (5-40) 01/24/17 11:40 ALT 14 units/L (7-56) 01/24/17 11:40 Alkaline Phosphatase 184 units/L (35-129) H 01/24/17 11:40 Ammonia 34.0 umol/L (25-60) 01/24/17 Unknown Total Creatine Kinase 469 units/L (30-135) H 01/25/17 06:39 CK-MB (CK-2) 5.1 ng/mL (0.0-4.0) H 01/25/17 06:39 CK-MB (CK-2) Rel Index 1.0 (0-4) 01/25/17 06:39 Troponin T < 0.010 ng/mL (0.00-0.029) 01/25/17 06:39 NT-Pro-B Natriuret Pep 28.24 pg/mL (0-900) 01/24/17 11:40 Total Protein 7.7 g/dL (6.3-8.2) 01/24/17 11:40 Albumin 4.7 g/dL (3.9-5) 01/24/17 11:40 Albumin/Globulin Ratio 1.6 % 01/24/17 11:40 Lipase 61 units/L (13-60) H 01/24/17 11:40 TSH 1.130 mlU/mL (0.270-4.200) 01/24/17 11:40 Free T4 1.37 ng/dL (0.76-1.46) 01/24/17 11:40 Urine Color Yellow (Yellow) 01/24/17 11:28 Urine Turbidity Clear (Clear) 01/24/17 11:28 Urine pH 7.0 (5.0-7.0) 01/24/17 11:28 Ur Specific [place] 1.010 (1.003-1.030) 01/24/17 11:28 Urine Protein <15 mg/dl mg/dL (Negative) 01/24/17 11:28 Urine Glucose (UA) Neg mg/dL (Negative) 01/24/17 11:28 Urine Ketones Neg mg/dL (Negative) 01/24/17 11:28 Urine Blood Neg (Negative) 01/24/17 11:28 Urine Nitrite Neg (Negative) 01/24/17 11:28 Urine Bilirubin Neg (Negative) 01/24/17 11:28 Urine Urobilinogen < 2.0 mg/dL (<2.0) 01/24/17 11:28 Ur Leukocyte Esterase Neg (Negative) 01/24/17 11:28 Urine WBC (Auto) < 1.0 /HPF (0.0-6.0) 01/24/17 11:28 Urine RBC (Auto) 3.0 /HPF (0.0-6.0) 01/24/17 11:28 U Epithel Cells (Auto) < 1.0 /HPF (0-13.0) 01/24/17 11:28 - Imaging and Cardiology CT scan - abdomen: pending
[2017-01-25] MEDS: KCL 10MEQ/100ML 10 MEQ/100 ML BAG IV SCH ×3 (08:30→10:18)
[2017-01-25 08:42] LABS: Anion Gap 18 mmol/L; BUN/Creatinine Ratio 8.88; Blood Urea Nitrogen 8 mg/dL (7-17); Calcium 9.3 mg/dL (8.4-10.2); Carbon Dioxide 20 mmol/L (22-30); Chloride 96.5 mmol/L (98-107); Glucose 86 mg/dL (65-100); Potassium 3.6 mmol/L (3.6-5.0); Sodium 131 mmol/L (137-145)
[2017-01-25] MEDS ORDERED: KCL 30 MEQ in NACL 0.9% 1000 ML 1,000 ML IV SCH (09:00)
[2017-01-25] MEDS: K-DUR PO SCH (09:57)
[2017-01-25] MEDS: LOVENOX SUB-Q SCH (09:57)
[2017-01-25] MEDS: PROTONIX PO SCH (10:00)
[2017-01-25] MEDS ORDERED: PROTONIX IV SCH (10:00)
[2017-01-25] MEDS ORDERED: NACL ONE (10:52)
--- NOTE | 2017-01-25 10:56 | Gastroenterology Consultation ---
History of Present Illness - Reason for Consult Consult date: 01/25/17 Weight loss, abdominal pain Requesting physician: GUERDA SANCHEZ - History of Present Illness The patient is a pleasant 66 yo female admitted with syncope from dehydration. She states for the last 7-10 days she has had epigastric discomfort with N/V. She has no hx of GI illnesses, and has not had an GI surgery. She says the pain is worst with eating solids, but she is able to tolerate liquids. She has not lost any weight. She has no blood in the emesis or stools, and denies constipation or diarrhea. She has no CP or SOB. She has no hx of CAD. She denies new medications, and has no hx of PUD/takes excedrin about once a week. There is no family hx of GI cancer or GB disease. She was markedly hyponatremic on admit, but admits that she was drinking "a lot" of water prior to admit because she could tolerate little else. Past History Past Medical History: hypertension Past Surgical History: No surgical history Social history: lives with family. denies: smoking, alcohol abuse Family history: hypertension Medications and Allergies Allergies Allergy/AdvReac Type Severity Reaction Status Date / Time Penicillins Allergy Rash Verified 01/24/17 11:13 Sulfa (Sulfonamide Allergy Rash Verified 01/24/17 11:13 Antibiotics) Home Medications Medication Instructions Recorded Confirmed Last Taken Type Atenolol [Tenormin] 100 mg PO DAILY 01/24/17 01/24/17 1 Day Ago History Lisinopril [Zestril] 20 mg PO QDAY 01/24/17 01/24/17 1 Day Ago History amLODIPine [Norvasc] 5 mg PO DAILY 01/24/17 01/24/17 1 Day Ago History traMADol [Ultram] 50 mg PO Q6HR PRN 01/24/17 01/24/17 1 Day Ago History Active Meds: Active Medications Acetaminophen (Tylenol) 650 mg PO Q4H PRN PRN Reason: Pain MILD(1-3)/Fever >100.5/SALCIDO Aspirin (Baby Aspirin) 81 mg PO QDAY ONE Stop: 01/25/17 17:47 Bisacodyl (Dulcolax) 10 mg SC QDAY PRN PRN Reason: Constipation unrelieved by MOM Enoxaparin Sodium (Lovenox) 40 mg SUB-Q QDAY [facility] Last Admin: 01/25/17 09:57 Dose: 40 mg Sodium Chloride (Nacl 0.9% 1000 Ml) 1,000 mls @ 100 mls/hr IV DIRECT [facility] Magnesium Hydroxide (Milk Of Magnesia) 30 ml PO Q4H PRN PRN Reason: Constipation Ondansetron HCl (Zofran) 4 mg IV Q8H PRN PRN Reason: N/V unrelieved by Reglan Pantoprazole Sodium (Protonix) 40 mg PO QDAY [facility] Last Admin: 01/25/17 10:00 Dose: Not Given Potassium Chloride (K-Dur) 40 meq PO QDAY [facility] Last Admin: 01/25/17 09:57 Dose: 40 meq Tramadol HCl (Ultram) 50 mg PO Q6H PRN PRN Reason: Pain, Moderate (4-6) Last Admin: 01/25/17 10:17 Dose: 50 mg Review of Systems - Review of Systems All systems: negative (as noted in the HPI) Exam - Constitutional Vital Signs: Temp Pulse Resp BP Pulse Ox 98.9 F 70 18 104/63 100 01/25/17 08:00 01/25/17 08:00 01/25/17 08:00 01/25/17 08:00 01/25/17 08:00 General appearance: no acute distress - EENT Eyes: PERRL, EOM intact ENT: hearing intact, clear oral mucosa - Neck Neck: supple, normal ROM - Respiratory Respiratory effort: normal Respiratory: bilateral: CTA - Cardiovascular Rhythm: regular Heart Sounds: Present: S1 & S2 Extremities: no ischemia, No edema - Gastrointestinal General gastrointestinal: Present: soft, tender (Mild in epigastric and RUQ), non-distended - Integumentary Integumentary: Present: clear, warm, dry - Neurologic Neurological: alert and oriented x3 - Labs CBC & Chem 7: 01/24/17 11:40 01/25/17 08:14 Lab Results: Laboratory Results - last 24 hr 01/24/17 01/24/17 01/24/17 18:10 Unknown Unknown PT 13.8 INR 1.07 APTT 20.0 L Sodium 125 L Potassium 3.2 L Chloride 86.1 L Carbon Dioxide 24 Anion Gap 18 BUN Creatinine Estimated GFR BUN/Creatinine Ratio Glucose Osmolality Lactic Acid 2.40 H* Calcium Ammonia Total Creatine Kinase CK-MB (CK-2) CK-MB (CK-2) Rel Index Troponin T Urine Osmolality 01/24/17 01/25/17 01/25/17 Unknown 06:39 07:30 PT INR APTT Sodium Potassium Chloride Carbon Dioxide Anion Gap BUN Creatinine Estimated GFR BUN/Creatinine Ratio Glucose Osmolality Lactic Acid Calcium Ammonia 34.0 Total Creatine Kinase 469 H CK-MB (CK-2) 5.1 H CK-MB (CK-2) Rel Index 1.0 Troponin T < 0.010 Urine Osmolality 259 01/25/17 01/25/17 01/25/17 08:14 08:14 08:14 PT INR APTT Sodium 131 L Potassium 3.6 Chloride 96.5 L Carbon Dioxide 20 L Anion Gap 18 BUN 8 Creatinine 0.9 Estimated GFR > 60 BUN/Creatinine Ratio 8.88 Glucose 86 Osmolality 268 Lactic Acid 1.30 Calcium 9.3 Ammonia Total Creatine Kinase CK-MB (CK-2) CK-MB (CK-2) Rel Index Troponin T Urine Osmolality Assessment and Plan - Patient Problems (1) Abdominal pain Current Visit: Yes Status: Acute Qualifiers: Abdominal location: A Plan to address problem: - Associated with N/V/hyponatremia. The severely low Na is most concerning for underlying organic disease. - Will start evaluation with CT A/P, but if negative, patient will need EGD and US of the RUQ. - Continue PO protonix, but doubt ulcer; since not anemic or with gross blood in stools. - D/C levofloxacin.
--- NOTE | 2017-01-25 12:34 | Cat Scan Report ---
CT SCAN OF THE ABDOMEN AND PELVIS WITH CONTRAST: HISTORY: Right upper quadrant abdominal pain. TECHNIQUE: Helical CT in 1.25mm intervals following IV contrast. Sagittal and coronal reconstructions. FINDINGS: The liver is normal in size and is without focal defect. The gallbladder is unremarkable on CT. No calcified gallstones, wall thickening or purple cystic fluid is appreciated. No biliary dilatation. The spleen and pancreas demonstrate a normal size and attenuation with no evidence of abnormal mass. The kidneys are normal in size and position with no evidence of hydronephrosis or mass. The adrenal glands are normal. There is no intestinal obstruction or ascites. Normal appendix. The abdominal aorta is normal. The uterus and adnexa are within normal limits. There is no evidence of peritoneal air or fluid. There is no evidence of any abnormal masses or fluid collections within the pelvis. No adenopathy is identified. The bladder is normal. The lung bases are clear. Mucous plugging in right lower lobe bronchi are noted. Normal heart size. IMPRESSION: No acute abdominal process is appreciated. The biliary system is unremarkable on CT. If further evaluation is needed, ultrasound is recommended.
[2017-01-25 13:18] LABS: Creatine Kinase 537 units/L (30-135)
[2017-01-25] MEDS ORDERED: LEVAQUIN 750MG/150ML 750 MG/150 ML BAG IV SCH (16:00)
[2017-01-25] MEDS ORDERED: BABY ASPIRIN PO ONE (17:46)
--- NOTE | 2017-01-26 10:26 | Progress Note ---
Assessment and Plan Assessment and plan: 66 y/o female with Hx of HTN was getting up from commode and passed out for a few seconds.Patient also has been vomiting off and on for past one month.No diarrhea.Some epigastric discomfort present.Feels very weak.No CP or SOB.No fever or chills.Unable to tolerate food.Not on any diuretics.Also bilateral shoulder pain.Takes Tramadol for the pain. Ruq abdominal Pain with possible associated Gastritis * IV protonix for now.GI consult noted, possible EGD in am * CT abdomen and pelvis unremarkable * Noted Lipase elevation likely secondary to repeated vomiting. Doubt pancreatitis Atypical chest pain * Cardiology consult * EKG * Mildly elevated CPK, ?Rhbadomylisis -will monitor. * Hold EGD till cardiac eval DONE Hypovolumic Hyponatremia * CORRECTED * Continue fluids to 125cc/hr. Repeat BMP today * Likely secondary to Intractable vomiting Hypokalemia * Resolved. Considering recurrent vomiting, add supplementation to IVF Syncope and collapse * Situational with possible orthostatic vs Vasovagal * Check orthostatic pressures * Agree with stress test when more stable * Echocardiogram-pending HTN (hypertension) * Patient Hypotensive now.Will hold BP meds Shoulder Pain * Will hold tramdol at this time due to repeated nasuea and vomiting * warm compress * ?need for imaging * Bradycardia * Improving. continue to monitor Lactic acidosis * No fever, no evidence of infection, possibly due to dehydration, corrected DVT prophylaxis * On Lovenox 40 mg sq qd Plan of care discussed in detail with the patient and GI History Interval history: Patient seen and examined, in no acute distress. Reports Right sided pain since the fall. no other new complaints. Hospitalist Physical - Physical exam Narrative exam: VITAL SIGNS: Reviewed. GENERAL: The patient appeared well nourished and normally developed. Vital signs as documented. HEAD: No signs of head trauma. EYES: Pupils are equal. Extraocular motions intact. EARS: Hearing grossly intact. MOUTH: Oropharynx is normal. NECK: No adenopathy, no JVD. CHEST: Chest with clear breath sounds bilaterally. No wheezes, rales, or rhonchi. CARDIAC: Regular rate and rhythm. S1 and S2, without murmurs, gallops, or rubs. VASCULAR: No Edema. Peripheral pulses normal and equal in all extremities. ABDOMEN: Soft, tender ruq. No sign of distention. No rebound or guarding, and no masses palpated. Bowel Sounds normal. MUSCULOSKELETAL: Limited range of motion on the right side secondary to pain. Tender on shoulders the right with limited active range of motion. Extremities without clubbing, cyanosis or edema. NEUROLOGIC EXAM: Alert and oriented x 3. No focal sensory or strength deficits. Speech normal. Follows commands. PSYCHIATRIC: Mood normal. SKIN: No rash or lesions. - Constitutional Vitals: Temp Pulse Resp BP Pulse Ox 99.2 F 90 18 98/56 98 01/26/17 08:00 01/26/17 08:00 01/26/17 08:00 01/26/17 08:00 01/26/17 08:00 General appearance: Present: no acute distress, well-nourished Results - Labs CBC & Chem 7: 01/24/17 11:40 01/25/17 08:14 Labs: Laboratory Last Values WBC 8.3 K/mm3 (4.5-11.0) 01/24/17 11:40 RBC 4.79 M/mm3 (3.65-5.03) 01/24/17 11:40 Hgb 14.1 gm/dl (10.1-14.3) 01/24/17 11:40 Hct 42.0 % (30.3-42.9) 01/24/17 11:40 MCV 88 fl (79-97) 01/24/17 11:40 MCH 29 pg (28-32) 01/24/17 11:40 MCHC 34 % (30-34) 01/24/17 11:40 RDW 12.5 % (13.2-15.2) L 01/24/17 11:40 Plt Count 434 K/mm3 (140-440) 01/24/17 11:40 Lymph % (Auto) 24.3 % (13.4-35.0) 01/24/17 11:40 Trinity % (Auto) 9.0 % (0.0-7.3) H 01/24/17 11:40 Eos % (Auto) 9.9 % (0.0-4.3) H 01/24/17 11:40 Baso % (Auto) 1.3 % (0.0-1.8) 01/24/17 11:40 Lymph # 2.0 K/mm3 (1.2-5.4) 01/24/17 11:40 Trinity # 0.7 K/mm3 (0.0-0.8) 01/24/17 11:40 Eos # 0.8 K/mm3 (0.0-0.4) H 01/24/17 11:40 Baso # 0.1 K/mm3 (0.0-0.1) 01/24/17 11:40 Seg Neutrophils % 55.5 % (40.0-70.0) 01/24/17 11:40 Seg Neutrophils # 4.6 K/mm3 (1.8-7.7) 01/24/17 11:40 PT 13.8 Sec. (12.2-14.9) 01/24/17 Unknown INR 1.07 (0.87-1.13) 01/24/17 Unknown APTT 20.0 Sec. (24.2-36.6) L 01/24/17 Unknown Sodium 131 mmol/L (137-145) L 01/25/17 08:14 Potassium 3.6 mmol/L (3.6-5.0) 01/25/17 08:14 Chloride 96.5 mmol/L (98-107) L 01/25/17 08:14 Carbon Dioxide 20 mmol/L (22-30) L 01/25/17 08:14 Anion Gap 18 mmol/L 01/25/17 08:14 BUN 8 mg/dL (7-17) 01/25/17 08:14 Creatinine 0.9 mg/dL (0.7-1.2) 01/25/17 08:14 Estimated GFR > 60 ml/min 01/25/17 08:14 BUN/Creatinine Ratio 8.88 % 01/25/17 08:14 Glucose 86 mg/dL (65-100) 01/25/17 08:14 Osmolality 268 Mosm/kg 01/25/17 08:14 Lactic Acid 1.30 mmol/L (0.7-2.0) 01/25/17 08:14 Calcium 9.3 mg/dL (8.4-10.2) 01/25/17 08:14 Magnesium 1.90 mg/dL (1.7-2.3) 01/24/17 11:40 Total Bilirubin 0.40 mg/dL (0.1-1.2) 01/24/17 11:40 AST 24 units/L (5-40) 01/24/17 11:40 ALT 14 units/L (7-56) 01/24/17 11:40 Alkaline Phosphatase 184 units/L (35-129) H 01/24/17 11:40 Ammonia 34.0 umol/L (25-60) 01/24/17 Unknown Total Creatine Kinase 537 units/L (30-135) H 01/25/17 12:43 CK-MB (CK-2) 5.0 ng/mL (0.0-4.0) H 01/25/17 12:43 CK-MB (CK-2) Rel Index 0.9 (0-4) 01/25/17 12:43 Troponin T < 0.010 ng/mL (0.00-0.029) 01/25/17 12:43 NT-Pro-B Natriuret Pep 28.24 pg/mL (0-900) 01/24/17 11:40 Total Protein 7.7 g/dL (6.3-8.2) 01/24/17 11:40 Albumin 4.7 g/dL (3.9-5) 01/24/17 11:40 Albumin/Globulin Ratio 1.6 % 01/24/17 11:40 Lipase 61 units/L (13-60) H 01/24/17 11:40 TSH 1.130 mlU/mL (0.270-4.200) 01/24/17 11:40 Free T4 1.37 ng/dL (0.76-1.46) 01/24/17 11:40 Urine Color Yellow (Yellow) 01/24/17 11:28 Urine Turbidity Clear (Clear) 01/24/17 11:28 Urine pH 7.0 (5.0-7.0) 01/24/17 11:28 Ur Specific [place] 1.010 (1.003-1.030) 01/24/17 11:28 Urine Protein <15 mg/dl mg/dL (Negative) 01/24/17 11:28 Urine Glucose (UA) Neg mg/dL (Negative) 01/24/17 11:28 Urine Ketones Neg mg/dL (Negative) 01/24/17 11:28 Urine Blood Neg (Negative) 01/24/17 11:28 Urine Nitrite Neg (Negative) 01/24/17 11:28 Urine Bilirubin Neg (Negative) 01/24/17 11:28 Urine Urobilinogen < 2.0 mg/dL (<2.0) 01/24/17 11:28 Ur Leukocyte Esterase Neg (Negative) 01/24/17 11:28 Urine WBC (Auto) < 1.0 /HPF (0.0-6.0) 01/24/17 11:28 Urine RBC (Auto) 3.0 /HPF (0.0-6.0) 01/24/17 11:28 U Epithel Cells (Auto) < 1.0 /HPF (0-13.0) 01/24/17 11:28 Urine Osmolality 259 Mosm/kg 01/25/17 07:30
--- NOTE | 2017-01-26 10:30 | Gastroenterology Progress Note ---
Assessment and Plan - Patient Problems (1) Abdominal pain Current Visit: Yes Status: Acute Qualifiers: Abdominal location: A Plan to address problem: - Associated with N/V/hyponatremia. - CT A/P is unremarkable, and sodium is much improved. - Does have lipase and alk phos that are very mildly elevated, and will repeat labs; also check a RUQ US to assess for microlithiasis. - Given mildly elevated CPK (despite negative troponin), will get Cards w/u before proceeding to endoscopy, as her N/V may be an angina-equivalent. - If Card w/u and RUQ US is negative, will get EGD (or potentially ERCP if liver enzymes markedly elevated, but no ductal dilation noted on the CT). Subjective Date of service: 01/26/17 Principal diagnosis: N/V, abdominal pain Interval history: The patient continues to tolerate liquid diet, but refuses solid food as it makes her nauseated and have worsening epigastric pain. She has had no fevers or chills, and denies any CP or SOB. Objective - Constitutional Vitals: Temp Pulse Resp BP Pulse Ox 99.2 F 90 18 98/56 98 01/26/17 08:00 01/26/17 08:00 01/26/17 08:00 01/26/17 08:00 01/26/17 08:00 General appearance: no acute distress - EENT Eyes: PERRL, EOM intact ENT: hearing intact - Respiratory Respiratory effort: normal Respiratory: bilateral: CTA - Cardiovascular Rhythm: regular Heart Sounds: Present: S1 & S2 - Gastrointestinal General gastrointestinal: Present: soft, tender (Epigastric discomfort), non- distended - Labs CBC & Chem 7: 01/24/17 11:40 01/25/17 08:14 Labs: Laboratory Results - last 24 hr 01/25/17 12:43 Total Creatine Kinase 537 H CK-MB (CK-2) 5.0 H CK-MB (CK-2) Rel Index 0.9 Troponin T < 0.010
[2017-01-26] MEDS: NACL 0.9% 1000 ML 1,000 ML IV SCH ×2 (10:37→20:32)
[2017-01-26] MEDS: LOVENOX SUB-Q SCH (10:38)
[2017-01-26] MEDS: PROTONIX PO SCH (10:38)
[2017-01-26] MEDS: K-DUR PO SCH (10:38)
[2017-01-26] MEDS: ULTRAM PO PRN ×3 (10:42→23:14)
--- NOTE | 2017-01-26 14:35 | Consultation ---
History of Present Illness Consult date: 01/26/17 Consult reason: syncope History of present illness: The patient is a 66-year-old woman who presented to the hospital with syncope. She reports that she had had over 4 days off upper abdominal pain, poor appetite , nausea and vomiting which culminated in a syncopal episode at home. On presentation, there was marked hyponatremia, sodium 121, and clinical evidence of dehydration. She has been evaluated by gastroenterology, who plan upper GI endoscopy. Cardiology consultation was requested for further assessment of cardiac enzymes measured from presentation. The CPK was elevated 469, but CK-MB and troponin normal, consistent with mild rhabdomyolysis. EKG was normal sinus rhythm, normal ECG. Further cardiac workup since presentation includes an echocardiogram that was ordered by the medical team, revealed normal left ventricle systolic function, ejection fraction 60-65%, with no significant valvular lesions. The patient has no chest pain, no shortness of breath, no palpitations and no cardiac symptoms. She is unaware of any significant prior cardiac history. Past History Past Medical History: hypertension Past Surgical History: No surgical history Social history: lives with family. denies: smoking, alcohol abuse Family history: hypertension Medications and Allergies Allergies Allergy/AdvReac Type Severity Reaction Status Date / Time Penicillins Allergy Rash Verified 01/24/17 11:13 Sulfa (Sulfonamide Allergy Rash Verified 01/24/17 11:13 Antibiotics) Home Medications Medication Instructions Recorded Confirmed Last Taken Type Atenolol [Tenormin] 100 mg PO DAILY 01/24/17 01/24/17 1 Day Ago History Lisinopril [Zestril] 20 mg PO QDAY 01/24/17 01/24/17 1 Day Ago History amLODIPine [Norvasc] 5 mg PO DAILY 01/24/17 01/24/17 1 Day Ago History traMADol [Ultram] 50 mg PO Q6HR PRN 01/24/17 01/24/17 1 Day Ago History Active Meds: Active Medications Acetaminophen (Tylenol) 650 mg PO Q4H PRN PRN Reason: Pain MILD(1-3)/Fever >100.5/SALCIDO Bisacodyl (Dulcolax) 10 mg MA QDAY PRN PRN Reason: Constipation unrelieved by MOM Enoxaparin Sodium (Lovenox) 40 mg SUB-Q QDAY [facility] Last Admin: 01/26/17 10:38 Dose: 40 mg Sodium Chloride (Nacl 0.9% 1000 Ml) 1,000 mls @ 100 mls/hr IV DIRECT [facility] Last Admin: 01/26/17 10:37 Dose: 100 mls/hr Magnesium Hydroxide (Milk Of Magnesia) 30 ml PO Q4H PRN PRN Reason: Constipation Ondansetron HCl (Zofran) 4 mg IV Q8H PRN PRN Reason: N/V unrelieved by Reglan Pantoprazole Sodium (Protonix) 40 mg PO QDAY [facility] Last Admin: 01/26/17 10:38 Dose: 40 mg Potassium Chloride (K-Dur) 40 meq PO QDAY [facility] Last Admin: 01/26/17 10:38 Dose: 40 meq Tramadol HCl (Ultram) 50 mg PO Q6H PRN PRN Reason: Pain, Moderate (4-6) Last Admin: 01/26/17 10:42 Dose: 50 mg Review of Systems Cardiovascular: syncope, no chest pain, no orthopnea, no palpitations, no rapid/ irregular heart beat, no edema, no lightheadedness, no shortness of breath Physical Examination Vital Signs Pulse Resp 59 L 13 01/24/17 10:55 01/24/17 10:55 General appearance: no acute distress HEENT: Positive: PERRL Neck: Positive: neck supple Cardiac: Positive: Reg Rate and Rhythm Lungs: Positive: clear to auscultation Neuro: Positive: Grossly Intact Abdomen: Positive: Soft Female genitourinary: deferred Skin: Positive: Clear Extremities: Absent: edema Results 01/24/17 11:40 01/25/17 08:14 EKG interpretations - Telemetry EKG Rhythm: Sinus Rhythm Assessment and Plan - Patient Problems (1) Syncope and collapse Current Visit: Yes Status: Acute Plan to address problem: Syncope associated with the abdominal pain, nausea, vomiting and dehydration. Cardiac workup so far with ECG, cardiac enzymes and echocardiogram all negative. Okay for GI to proceed with upper GI endoscopy for further evaluation of primary presenting complaint.
[2017-01-27] MEDS: NACL 0.9% 1000 ML 1,000 ML IV SCH ×2 (05:25→15:19)
[2017-01-27 07:25] LABS: Hematocrit 34.7 % (30.3-42.9); Hemoglobin 11.7 gm/dl (10.1-14.3); Mean Corpuscular HGB Conc 34 % (30-34); Mean Corpuscular Hemoglobin 30 pg (28-32); Mean Corpuscular Volume 90 fl (79-97); Platelet Count 345 K/mm3 (140-440); Red Blood Count 3.87 M/mm3 (3.65-5.03); White Blood Count 8.4 K/mm3 (4.5-11.0)
--- NOTE | 2017-01-27 08:43 | XRay Report ---
RIGHT CLAVICLE RADIOGRAPHS INDICATION: Fracture. COMPARISON: None similar. FINDINGS: Two frontal projections suggest intact right clavicle and adjacent articulations. Demineralized bones. Mild shoulder and few spinal degenerative changes suspected. Clear right lung. Aortic knob calcifications. CONCLUSION: Intact right clavicle with few degenerative changes noted, as above. Thank you for the opportunity to participate in this patient's care.
--- NOTE | 2017-01-27 08:46 | XRay Report ---
RIGHT SHOULDER RADIOGRAPHS INDICATION: Fracture. COMPARISON: None similar. FINDINGS: Frontal and Y views of the right shoulder, 3 projections demonstrate intact humeral head contour, well positioned against the glenoid. Normal acromioclavicular joint. Mild humeral head and AC joint degenerative spurring. Thoracic spine degenerative changes also suspected. Mild aortic knob calcifications. Right hemidiaphragm mildly elevated. Preserved scapular contour. CONCLUSION: No acute right shoulder radiographic abnormality with few degenerative changes noted, as described. Thank you for the opportunity to participate in this patient's care.
[2017-01-27 09:06] LABS: Alanine Aminotransferase 12 units/L (7-56); Albumin 3.5 g/dL (3.9-5); Albumin/Globulin Ratio 1.2 %; Alkaline Phosphatase 130 units/L (35-129); Anion Gap 19 mmol/L; BUN/Creatinine Ratio 5.71; Blood Urea Nitrogen 4 mg/dL (7-17); Calcium 9.1 mg/dL (8.4-10.2); Carbon Dioxide 19 mmol/L (22-30); Chloride 103.1 mmol/L (98-107); Glucose 89 mg/dL (65-100); Lipase 111 units/L (13-60); Sodium 137 mmol/L (137-145); Total Protein 6.4 g/dL (6.3-8.2)
--- NOTE | 2017-01-27 09:08 | Ultrasound Report ---
RIGHT UPPER QUADRANT ULTRASOUND: HISTORY: Nausea and vomiting, right upper quadrant abdominal pain. Technique: Transabdominal ultrasound imaging with Doppler interrogation. FINDINGS: There is a mild degree of sludge in the gallbladder. No shadowing gallstones, wall thickening or pericholecystic fluid. The CBD measures 3 mm. Images of the liver parenchyma, pancreas, right kidney and aorta are within normal limits. No perihepatic ascites. IMPRESSION: Mild degree of sludge in the gallbladder. No definite findings of acute cholecystitis.
--- NOTE | 2017-01-27 10:05 | Discharge Summary ---
Providers - Providers Date of Admission: 01/24/17 14:34 Attending physician: GUERDA SANCHEZ MD 01/25/17 06:18 Consult to Physician [CONS] Routine Consulting Provider: TERI POST Reason For Exam: recurrent vomiting Place consult to:: dr. post Notified:: answering service Phone number called:: [phone] Was contact made?: Yes If yes, spoke with:: edward Time called:: 07:48 01/26/17 10:36 Consult to Physician [CONS] Routine Consulting Provider: SHASTA CROUCH Reason For Exam: acs Place consult to:: dr. crouch/ clay Notified:: answering service Phone number called:: [phone] Was contact made?: Yes If yes, spoke with:: laya Time called:: 11:04 Primary care physician: [facility] [employer] CL[facility] Hospitalization Reason for admission: right upper quadrant pain Condition: Stable Hospital course: 66 y/o female with Hx of HTN was getting up from commode and passed out for a few seconds.Patient also has been vomiting off and on for past one month.No diarrhea.Some epigastric discomfort present.Feels very weak.No CP or SOB.No fever or chills.Unable to tolerate food.Not on any diuretics.Also bilateral shoulder pain.Takes Tramadol for the pain. Ruq abdominal Pain with possible associated Gastritis * Patient was seen by GI and recommended to have a CT abdomen and pelvis which was unremarkable and also plan for endoscopy with concern of possible ERCP also. Prior to that cardiology was consulted to clear the patient's which they give their clearance. Large Hiatal Hernia on EGD * Surgery eval outpatient Atypical chest pain-likely secondary to the fall and costochondritis no cardiac condition found a Cardiologic consultation. Hypovolumic Hyponatremia * CORRECTED * Likely secondary to Intractable vomiting Hypokalemia * Resolved. * Syncope and collapse * Situational with possible orthostatic, echocardiogram with no valvular stenosis and aortic valve HTN (hypertension) * Patient Hypotensive now.Will hold BP meds Shoulder Pain * Imaging studies were unremarkable except for mild DJD * Bradycardia * Improving. Lactic acidosis * No fever, no evidence of infection, possibly due to dehydration, corrected D Disposition: [id number] HOME [facility] Time spent for discharge: 35 mins Core Measure Documentation - Palliative Care Palliative Care/ Comfort Measures: Not Applicable - Core Measures Any of the following diagnoses?: none - VTE Discharge Requirements Deep Vein Thrombosis/Pulmonary Embolism Present on Admission: No Exam - Physical Exam Narrative exam: VITAL SIGNS: Reviewed. GENERAL: The patient appeared well nourished and normally developed. Vital signs as documented. HEAD: No signs of head trauma. EYES: Pupils are equal. Extraocular motions intact. EARS: Hearing grossly intact. MOUTH: Oropharynx is normal. NECK: No adenopathy, no JVD. CHEST: Chest with clear breath sounds bilaterally. No wheezes, rales, or rhonchi. CARDIAC: Regular rate and rhythm. S1 and S2, without murmurs, gallops, or rubs. VASCULAR: No Edema. Peripheral pulses normal and equal in all extremities. ABDOMEN: Soft, nontender today. No sign of distention. No rebound or guarding, and no masses palpated. Bowel Sounds normal. MUSCULOSKELETAL: Limited range of motion on the right side secondary to pain. Tender on shoulders the right with limited active range of motion. Extremities without clubbing, cyanosis or edema. NEUROLOGIC EXAM: Alert and oriented x 3. No focal sensory or strength deficits. Speech normal. Follows commands. PSYCHIATRIC: Mood normal. SKIN: No rash or lesions. - Constitutional Vitals: Temp Pulse Resp BP Pulse Ox 98.4 F 80 18 118/73 95 01/27/17 07:00 01/27/17 07:00 01/27/17 07:00 01/27/17 07:00 01/27/17 07:00 Plan Activity: advance as tolerated, fall precautions Diet: low fat Special Instructions: record daily weights, record daily BP diary, physical therapy, occupational therapy Follow up with: VESTA ERICKSON MD [Staff Physician] - 7 Days PRIMARY CAREMD [Primary Care Provider] - 3-5 Days MICHELLE MASON MD [Staff Physician] - 7 Days Prescriptions: Pantoprazole [Protonix TAB] 40 mg PO QDAY #30 tablet
[2017-01-27 10:44] LABS: Basophils % (Manual) 0 % (0.0-1.8); Blastocytes % (Manual) 0 %; Burr Cells 1+; Elliptocytes Few
[2017-01-27 10:45] LABS: Diff Status Complete; Large Platelets Few; Platelet Estimate Appe
--- NOTE | 2017-01-27 12:10 | Progress Note ---
Assessment and Plan - Patient Problems (1) Syncope and collapse Current Visit: Yes Status: Acute Plan to address problem: Syncope associated with the abdominal pain, nausea, vomiting and dehydration. Cardiac workup so far with ECG, cardiac enzymes and echocardiogram all negative. Okay for GI to proceed with upper GI endoscopy for further evaluation of primary presenting complaint. No further cardiac workup is indicated. Subjective Date of service: 01/27/17 Principal diagnosis: N/V, abdominal pain Interval history: Patient is comfortable, no cardiac complaints. Objective Vital Signs Temp Pulse Resp BP Pulse Ox 01/27/17 07:00 98.4 F 80 18 118/73 95 01/27/17 00:00 98.5 F 78 20 133/69 01/26/17 20:00 98.8 F 73 18 130/71 96 01/26/17 16:00 99.6 F 88 18 117/69 97 - Physical Examination General: No Apparent Distress HEENT: Positive: PERRL Neck: Positive: neck supple Cardiac: Positive: Reg Rate and Rhythm Lungs: Positive: clear to auscultation Neuro: Positive: Grossly Intact Abdomen: Positive: Soft Skin: Positive: Clear Extremities: Absent: edema - Labs and Meds Cardiac Enzymes 01/27/17 Range/Units 06:57 AST 19 (5-40) units/L CBC 01/27/17 Range/Units 06:57 WBC 8.4 (4.5-11.0) K/mm3 RBC 3.87 (3.65-5.03) M/mm3 Hgb 11.7 (10.1-14.3) gm/dl Hct 34.7 D (30.3-42.9) % Plt Count 345 (140-440) K/mm3 Comprehensive Metabolic Panel 01/27/17 Range/Units 06:57 Sodium 137 (137-145) mmol/L Potassium 4.0 (3.6-5.0) mmol/L Chloride 103.1 (98-107) mmol/L Carbon Dioxide 19 L (22-30) mmol/L BUN 4 L (7-17) mg/dL Creatinine 0.7 (0.7-1.2) mg/dL Glucose 89 (65-100) mg/dL Calcium 9.1 (8.4-10.2) mg/dL AST 19 (5-40) units/L ALT 12 (7-56) units/L Alkaline Phosphatase 130 H (35-129) units/L Total Protein 6.4 (6.3-8.2) g/dL Albumin 3.5 L (3.9-5) g/dL - Imaging and Cardiology EKG: report reviewed
[2017-01-27 14:38] VITALS: BP 133/82
--- NOTE | 2017-01-27 16:14 | Anesthesia Day of Surgery ---
Anesthesia Day of Surgery - Day of Surgery Patient Examined: Yes Patient H&P Reviewed: Yes Patient is NPO: Yes Beta Blockers: No (Hypotension, hasnt taken since Friday)
--- NOTE | 2017-01-27 16:15 | Anesthesia Consultation ---
Anesthesia Consult and Med Hx Date of service: 01/27/17 - Airway Anesthetic Teeth Evaluation: Edentulous ROM Head & Neck: Adequate Mental/Hyoid Distance: Adequate Mallampati Class: Class II Intubation Access Assessment: Probably Good - Pulmonary Exam CTA: Yes - Cardiac Exam Cardiac Exam: RRR - Pre-Operative Health Status ASA Pre-Surgery Classification: ASA2 Proposed Anesthetic Plan: MAC - Pulmonary Hx Smoking: No - Cardiovascular System Hx Hypertension: Yes (has not taken Atenolol since Friday) - Gastrointestinal Hx Gastroesophageal Reflux Disease: Yes
[2017-01-27] MEDS ORDERED: DIPRIVAN 10 MG/ML IV ONE (16:16)
[2017-01-27] MEDS ORDERED: WATER FOR IRRIG STERILE IR ONE ×2 (16:19→16:44)
--- NOTE | 2017-01-27 16:27 | Post Operative Note ---
Pre-op diagnosis: dyspepsia Post-op diagnosis: other (large hiatal hernia, non-obstructing B ring) Findings: 1. Large hiatal hernia 2. Non-obstructing (widely) patent B ring in lower third of esophagus Procedure: EGD Anesthesia: MAC Surgeon: DAVIAN SUMMERS Estimated blood loss: none Pathology: none Condition: stable Disposition: floor
--- NOTE | 2017-01-27 16:34 | Operative Report ---
Operative Report Operative Report: EGD PROCEDURE NOTE DATE OF PROCEDURE: 01/27/2017 PRE-OP DIAGNOSIS: abdominal pain/dyspepsia, n/v POST-OP DIAGNOSIS: large hiatal hernia, non-obstructing B ring ANESTHESIA: MAC COMPLICATIONS: no immediate complications ESTIMATED BLOOD LOSS: none PROCEDURE: After consent was obtained, the patient was placed in the left lateral decubitus position. The fujinon endoscope was inserted into the patient's mouth under direct vision, and advanced to the 2nd portion of the duodenum without difficulty. The views of the mucosa were good. The patient tolerated the procedure fairly well. The patient's vital signs were monitored throughout the procedure. FINDINGS: Esophagus: large hiatal hernia. Non-obstructing (widely patent) B-ring in lower third of the esophagus. Stomach and duodenum appeared normal. IMPRESSION: 1. Large hiatal hernia 2. Non-obstructing B-ring (schatski ring) RECOMMENDATIONS: -PPI ac bk -patient reports improvement (mostly resolved) GI symptoms since admission. Okay to d/c from GI stand point and f/u in GI clinic in 2-4 weeks. -if dysphagia develops, repeat EGD with dilatation can be performed if needed ( can be done as out-patient) -US findings reviewed (GB sludge). alk phos slightly elevated, other liver enzymes unremarkable. Unclear if this is the cause of her symptoms on presentation. Since symptoms appear resolved, can monitor for time being, and obtain HIDA scan as outpatient if needed (with possible surgery consult if symptoms felt to be biliary related). Will sign off, please call as needed or with questions
[2017-01-27] MEDS: ULTRAM PO PRN (18:40)
[2017-01-27] MEDS: PROTONIX PO SCH (18:40)
[2017-01-27] MEDS: K-DUR PO SCH (18:40)
[2017-01-27] MEDS: LOVENOX SUB-Q SCH (19:02)
== END 2017-01-27 19:10 | disposition home health service (06) | DRG 392 ==
LOC: ED 10:37 → 3A 14:34
PROVIDERS: ADMIT Internal Medicine; ATTEND Internal Medicine
PROC: 0DJ08ZZ Inspection of Upper Intestinal Tract, Via Natural or Artificial Opening Endoscopic (ICD-10-PCS; principal; 2017-01-27)
DX: K29.70 Gastritis, unspecified, without bleeding (principal); E87.1 Hypo-osmolality and hyponatremia; I10 Essential (primary) hypertension; E87.6 Hypokalemia; R00.1 Bradycardia, unspecified; R55 Syncope and collapse; K44.9 Diaphragmatic hernia without obstruction or gangrene; R10.13 Epigastric pain; Z82.49 Family history of ischemic heart disease and other diseases of the circulatory system; Z88.2 Allergy status to sulfonamides; Z88.0 Allergy status to penicillin
CPT/HCPCS: 36415; 70450; 71010; 74177; 76705; 80048; 80051; 80053; 81001; 82140; 82550; 82553; 83690; 83735; 83880; 83930; 83935; 84439; 84443; 84484; 85007; 85025; 85610; 85730; 87040; 87086; 93005; 93010; 93306; 93880; 96374; 96375; C9113; J1650; J1956; J2405; J2704; J3480; J7030; Q9967

== ENCOUNTER 2021-12-14 12:11 | Emergency (ER) | payer MEDICAID ==
--- NOTE | 2021-12-14 13:18 | Emergency Department Report ---
ED Lower Extremity HPI - General Chief Complaint: Extremity Injury, Lower Stated Complaint: RT ANKLE INJURY Time Seen by Provider: 12/14/21 12:49 Source: patient, EMS Mode of arrival: Stretcher Limitations: No Limitations - History of Present Illness Initial Comments: Patient is a 71-year-old female brought in by EMS from home for evaluation of right ankle injury. States she was walking into her kitchen and tripped over an object twisting her ankle. Noted deformity by family who called EMS who placed her in a splint. - Related Data Home Medications Medication Instructions Recorded Confirmed Last Taken amLODIPine 5 mg PO DAILY 01/24/17 01/24/17 1 Day Ago ~01/23/17 traMADoL [Ultram 50 MG tab] 50 mg PO Q6HR PRN 01/24/17 01/24/17 1 Day Ago ~01/23/17 Previous Rx's Medication Instructions Recorded Last Taken Type Pantoprazole [Protonix TAB] 40 mg PO QDAY #30 tablet 01/27/17 Unknown Rx Allergies Allergy/AdvReac Type Severity Reaction Status Date / Time Penicillins Allergy Rash Verified 01/24/17 11:13 Sulfa (Sulfonamide Allergy Rash Verified 01/24/17 11:13 Antibiotics) ED Review of Systems ROS: Stated complaint: RT ANKLE INJURY Other details as noted in HPI Comment: All other systems reviewed and negative Constitutional: denies: chills, fever Respiratory: denies: cough, shortness of breath, wheezing Cardiovascular: denies: chest pain, palpitations Gastrointestinal: denies: abdominal pain, nausea, diarrhea Genitourinary: denies: urgency, dysuria, discharge Musculoskeletal: denies: back pain, joint swelling, arthralgia Skin: denies: rash, lesions Neurological: denies: headache, weakness, paresthesias Psychiatric: denies: anxiety, depression ED Past Medical Hx - Past Medical History Previous Medical History?: Yes Hx Hypertension: Yes (has not taken Atenolol since Friday) Hx CVA: No Hx Heart Attack/AMI: No Hx Congestive Heart Failure: No Hx Diabetes: No Hx Deep Vein Thrombosis: No Hx Pulmonary Embolism: No Hx GERD: No Hx Liver Disease: No Hx Renal Disease: No Hx of Cancer: No Hx Sickle Cell Disease: No Hx Arthritis: No Hx Headaches / Migraines: No Hx Seizures: No Hx Kidney Stones: No Hx Psychiatric Treatment: No Hx Asthma: No Hx COPD: No Hx Tuberculosis: No Hx Dementia: No Hx HIV: No - Surgical History Past Surgical History?: No - Social History Smoking Status: Never Smoker Substance Use Type: None - Medications Home Medications: Home Medications Medication Instructions Recorded Confirmed Last Taken Type amLODIPine 5 mg PO DAILY 01/24/17 01/24/17 1 Day Ago History ~01/23/17 traMADoL [Ultram 50 MG tab] 50 mg PO Q6HR PRN 01/24/17 01/24/17 1 Day Ago History ~01/23/17 Pantoprazole [Protonix TAB] 40 mg PO QDAY #30 tablet 01/27/17 Unknown Rx ED Physical Exam - General Limitations: No Limitations General appearance: alert, in no apparent distress - Head Head exam: Present: atraumatic, normocephalic - Respiratory Respiratory exam: Present: normal lung sounds bilaterally. Absent: respiratory distress - Cardiovascular Cardiovascular Exam: Present: regular rate, normal rhythm, normal heart sounds - GI/Abdominal GI/Abdominal exam: Present: soft. Absent: distended, tenderness - Rectal Rectal exam: Present: deferred - Extremities Exam Extremities exam: Present: tenderness, joint swelling, other (Swelling and deformity to right ankle. DP and PT pulses intact) - Neurological Exam Neurological exam: Present: alert, oriented X3 - Psychiatric Psychiatric exam: Present: normal affect, normal mood - Skin Skin exam: Present: warm, dry, intact, normal color ED Course Vital Signs 12/14/21 12:32 Pulse Rate 80 Respiratory 18 Rate Blood Pressure 152/92 [Left] O2 Sat by Pulse 99 Oximetry ED Lower Extremity MDM - Radiology Data Radiology results: image reviewed interpreted by me: X-ray right ankle reveals minimally displaced bimalleolar fracture. - Medical Decision Making Patient placed in OCL stirrup splint. Will discharge home with prescription for a wheelchair as patient will be unable to use crutches. Patient to follow-up with orthopedic surgery at earliest convenience. Critical care attestation.: If time is entered above; I have spent that time in minutes in the direct care of this critically ill patient, excluding procedure time. ED Disposition Clinical Impression: Closed right ankle fracture Disposition: HOME / SELF CARE / HOMELESS Is pt being admited?: No Condition: Stable Instructions: Nondisplaced Bimalleolar Ankle Fracture Treated With Immobilization Referrals: FRANCISCO JAVIER BENNETT MD [Staff Physician] - 7-10 days
--- NOTE | 2021-12-14 13:46 | XRay Report ---
RIGHT ANKLE 3 VIEWS INDICATION / CLINICAL INFORMATION: Fracture of right ankle. COMPARISON: None available. FINDINGS: BONES and JOINT(S): The bones are demineralized with acute mildly displaced fractures of the medial m alleolus and the distal third of the fibula with extension of the latter fracture to the tibiofibular syndesmosis. No acute displaced fracture of the posterior malleolus is clearly seen. There is latera l talar shift. No significant arthritis. SOFT TISSUES: There is mild generalized edema. ADDITIONAL FINDINGS: None. IMPRESSION: 1. Acute right ankle fractures as above with disruption of the ankle joint. Signer Name: Stefan Ghosh MD Signed: 12/14/2021 1:41 PM Workstation Name: [email or web address]
[2021-12-14] MEDS ORDERED: HYDROcodone/ACETAMINOPHEN 5-325 MG TAB PO ONE (15:03)
[2021-12-14 16:32] VITALS: BP 148/77
== END 2021-12-14 16:35 | disposition home or self-care (01) ==
LOC: ED 12:11
DX: S82.891A Other fracture of right lower leg, initial encounter for closed fracture (principal); I10 Essential (primary) hypertension; Z88.1 Allergy status to other antibiotic agents; Z88.6 Allergy status to analgesic agent; Z79.899 Other long term (current) drug therapy; X58.XXXA Exposure to other specified factors, initial encounter; Y93.89 Activity, other specified; Y92.89 Other specified places as the place of occurrence of the external cause; Y99.8 Other external cause status
CPT/HCPCS: 99284

== ENCOUNTER 2022-01-03 08:00 | Day surgery (SDC) | payer MEDICAID ==
[~2022-01-03 08:00] MED LIST: ceFAZolin/Water 2 GM/20 ML 2 GM/20 ML SYRINGE IV NR
[2022-01-03] MEDS ORDERED: LACTATED RINGERS 1,000 ML IV ONE (09:30)
[2022-01-03] MEDS ORDERED: propofoL 200 MG/20 ML VIAL IV ONE (11:11)
[2022-01-03] MEDS ORDERED: fentaNYL 100 MCG/2 ML INJ ONE (11:11)
[2022-01-03] MEDS ORDERED: LIDOCAINE MPF (2%) 20 MG/1 ML VIAL 5 ML ONE (11:11)
[2022-01-03] MEDS ORDERED: BUPIVACAINE-EPINEPHRINE/PF 0.5%-1:200,000 (30 ML) VIAL INFILTRATI ONE ×2 (11:36→12:00)
[2022-01-03] MEDS ORDERED: MIDAZOLAM 2 MG/2 ML INJ ONE (11:37)
[2022-01-03] MEDS ORDERED: MIDAZOLAM 2 MG/2 ML INJ IV ONE (11:45)
[2022-01-03] MEDS ORDERED: MIDAZOLAM 2 MG/2 ML INJ IV NR (11:45)
--- NOTE | 2022-01-03 11:49 | Anesthesia Consultation ---
Anesthesia Consult and Med Hx Date of service: 01/03/22 - Airway Anesthetic Teeth Evaluation: Dentures ROM Head & Neck: Adequate Mental/Hyoid Distance: Adequate Mallampati Class: Class II Intubation Access Assessment: Probably Good - Pulmonary Exam CTA: Yes - Cardiac Exam Cardiac Exam: RRR - Pre-Operative Health Status ASA Pre-Surgery Classification: ASA3 Proposed Anesthetic Plan: General Nerve Block: Ank - Pulmonary Hx Smoking: No Hx Asthma: No COPD: No Hx Sleep Apnea: No (ALMA PRE SCREEN HIGH RISK) - Cardiovascular System Hx Hypertension: Yes (X 10 YRS; took medication this morning) Hx Heart Attack/AMI: No Hx Cardia Arrhythmia: No - Central Nervous System Hx Seizures: No Hx Back Pain: Yes (NECK AND BACK PAIN) Hx Psychiatric Problems: No - Gastrointestinal Hx Ulcer: Yes Hx Gastroesophageal Reflux Disease: Yes (took protonix this morning) - Endocrine Hx Renal Disease: No Hx Liver Disease: No Hx Insulin Dependent Diabetes: No Hx Non-Insulin Dependent Diabetes: No - Hematic Hx Anemia: No Hx Sickle Cell Disease: No - Other Systems Hx Cancer: No Hx Obesity: Yes (BMI 31.4) - Additional Comments Anesthesia Medical History Comments: No GAC. No FHAC.
--- NOTE | 2022-01-03 11:49 | Anesthesia Day of Surgery ---
Anesthesia Day of Surgery - Day of Surgery Patient Examined: Yes Patient H&P Reviewed: Yes Patient is NPO: Yes
[2022-01-03] MEDS ORDERED: VANCOMYCIN/NS 1 GM/250 ML 1 GM/250 ML BAG IV NR (12:00)
[2022-01-03] MEDS ORDERED: SODIUM CHLORIDE 0.9% IRR 1,500 ML BOTTLE IR ONE (12:47)
[2022-01-03] MEDS ORDERED: SUGAMMADEX SODIUM 200 MG/2 ML VIAL IV ONE (13:16)
--- NOTE | 2022-01-03 13:46 | Procedure Note ---
Date of procedure: 01/03/22 Pre-op diagnosis: Displaced right bimalleolar ankle fracture Post-op diagnosis: same Procedure: Open reduction internal fixation left ankle fracture Procedure The patient was brought to the OR after having a femoral nerve block in preop holding for Postop pain management. The patient was placed on the OR table in supine position following induction and intubation the patient's left lower extremity was prepped and draped in the usual sterile manner. A timeout procedure was done to identify the patient and the correct operative site. The leg was then exsanguinated followed by inflation of the pneumatic tourniquet to 300 mmHg. A lateral incision was made over the distal fibula this is taken down sharply through skin and subcutaneous the fracture site was identified and using gentle manipulation the fracture fragments were reduced into a more anatomic position next a locked distal fibular plate was applied with screws of appropriate length and AP and lateral view was obtained and showed good reduction at the fracture and placement of the hardware. Next a curvlinear incision was made over the medial malleolus is then taken down sharply through skin and subcutaneous the fracture was identified and again using gentle manipulation I was held in place by way of a bone clamp next 2 small threaded K wires were used followed by placement of our 4.0 50 mm length cannulated screws again AP and lateral views were obtained showing good reduction medially. The wound was copiously irrigated the medial and lateral incisions were closed in a standard routine fashion postoperative dressings were applied as well as a well- padded posterior mold the patient tolerated the procedure there were no complications and he was sent to postanesthesia recovery in stable condition Anesthesia: MAC, regional Surgeon: FRANCISCO JAVIER BENNETT Estimated blood loss: minimal Pathology: none Condition: stable Disposition: PACU
--- NOTE | 2022-01-03 13:51 | Post Anesthesia Evaluation ---
- Post Anesthesia Evaluation Patient Participated: Yes Airway Patent: Yes Stable Respiratory Function: Yes Nausea/Vomiting: No Temp > 96.8F: Yes Pain Manageable: Yes Adequeate Hydration: Yes Anesthesia Complications: No
[2022-01-03 14:25] VITALS: BP 127/86
--- NOTE | 2022-01-03 15:03 | XRay Report ---
RIGHT ANKLE 2 VIEWS INDICATION: RIGHT ANKLE FX. COMPARISON: None. IMPRESSION: 0.1 minutes of fluoroscopy time was provided by radiology during surgery. 2 fluoroscopi c images are presented demonstrating internal fixation of the bimalleolar fracture. Please correlate with the procedural report as needed. Signer Name: Archie Teixeira Jr, MD Signed: 01/03/2022 2:58 PM Workstation Name: [id number]
== END 2022-01-03 14:55 | disposition home or self-care (01) ==
LOC: OR 08:00
PROVIDERS: ATTEND Orthopaedic Surgery
DX: S82.841A Displaced bimalleolar fracture of right lower leg, initial encounter for closed fracture (principal); I10 Essential (primary) hypertension; G43.909 Migraine, unspecified, not intractable, without status migrainosus; K21.9 Gastro-esophageal reflux disease without esophagitis; E66.9 Obesity, unspecified; M19.90 Unspecified osteoarthritis, unspecified site; Z98.890 Other specified postprocedural states; Z20.822 Contact with and (suspected) exposure to COVID-19; Z88.0 Allergy status to penicillin; Z88.2 Allergy status to sulfonamides; Z79.899 Other long term (current) drug therapy; X58.XXXA Exposure to other specified factors, initial encounter; Y93.89 Activity, other specified; Y92.89 Other specified places as the place of occurrence of the external cause; Y99.8 Other external cause status
CPT/HCPCS: 27814; 64447; 73600; C1713; J2250; J2704; J3010; J3370; J3490; U0003; 64450